=== PATIENT | male | born 1980 | race Caucasian/White ===

== ENCOUNTER 2022-11-15 15:06 | Inpatient (IN) | payer MEDICARE ==
[2022-11-15] MEDS ORDERED: oxyCODONE-APAP 10-325MG 1 EACH TAB PO STA (15:44)
--- NOTE | 2022-11-15 15:48 | ED ---
Fever HPI - General Chief Complaint: Fever Stated Complaint: fever Time Seen by Provider: 11/15/22 15:28 Source: patient Mode of arrival: ambulatory Limitations: no limitations - History of Present Illness Initial Comments: This patient is 42-year-old man sent from [facility] after he was found to have fever and leukocytosis. History is from the patient and his mother. They state that he has a known decubitus ulcer that they believe is infected. The patient denies other symptoms of infection, no sinus congestion or sore throat. No cough or dyspnea. No change in urination or bowel movements. No pain other than chronic pain in the bilateral lower extremities that he states is due to rheumatoid arthritis. Patient is on Percocet chronically for this. MD Complaint: fever Onset/Timin -: days(s) Temperature Source: oral Associated Symptoms: denies other symptoms Treatments Prior to Arrival: none - Related Data Home Medications Medication Instructions Recorded Confirmed Alendronate Sodium [Fosamax] 70 mg PO FR 11/15/22 11/15/22 Aspirin 81 mg PO HS 11/15/22 11/15/22 Atorvastatin Calcium [Lipitor] 80 mg PO HS 11/15/22 11/15/22 Cyanocobalamin [Vitamin B-12] 500 mcg PO HS 11/15/22 11/15/22 DULoxetine HCL [Cymbalta] 60 mg PO DAILY 11/15/22 11/15/22 Ferrous Sulfate [Iron (65 MG 325 mg PO HS 11/15/22 11/15/22 Elemental)] Folic Acid 1 mg PO HS 11/15/22 11/15/22 Levothyroxine Sodium [Synthroid] 50 mcg PO DAILY@0500 11/15/22 11/15/22 Menthol [Biofreeze] 1 applic TOPICAL Q8H PRN 11/15/22 11/15/22 Mirtazapine [Remeron] 15 mg PO HS 11/15/22 11/15/22 Multivitamins, Thera [Multivitamin 1 tab PO HS 11/15/22 11/15/22 (formulary)] Nicotine 21Mg/24Hr Patch [Habitrol] 1 patch TRANSDERM DAILY 11/15/22 11/15/22 Omeprazole [PriLOSEC] 20 mg PO DAILY 11/15/22 11/15/22 Promethazine HCl 12.5 mg PO Q6H PRN 11/15/22 11/15/22 carvediloL [Coreg] 12.5 mg PO BID 11/15/22 11/15/22 metHOTREXate sodium [Methotrexate] 25 mg PO FR 11/15/22 11/15/22 methocarbamoL [Robaxin] 500 mg PO TID@0700,1300,1900 11/15/22 11/15/22 predniSONE [Deltasone] 20 mg PO DAILY 11/15/22 11/15/22 sulfaSALAzine [Sulfasalazine] 1,500 mg PO BID 11/15/22 11/15/22 Previous Rx's Medication Instructions Recorded Ampicillin-Sulbactam [Unasyn 3 gm 3 gm IVPB Q6HR 42 Days #168 each 11/21/22 vial] Heparin Sodium,Porcine [Heparin 5,000 unit SQ Q12HR 30 Days #60 11/21/22 Sodium] each Moxifloxacin [Vigamox 0.5%] 1 drops LEFT EYE TID ml 11/21/22 oxyCODONE-APAP 10-325MG [Percocet 1 tab PO Q4H PRN #3 tab 11/21/22 10-325 mg] Allergies Allergy/AdvReac Type Severity Reaction Status Date / Time No Known Allergies Allergy Verified 11/15/22 19:19 Review of Systems ROS Statement: Those systems with pertinent positive or pertinent negative responses have been documented in the HPI. ROS Other: All systems not noted in ROS Statement are negative. Constitutional: Reports: fever ENT: Denies: throat pain, congestion Respiratory: Denies: cough, dyspnea Cardiovascular: Denies: chest pain Gastrointestinal: Denies: abdominal pain, vomiting, diarrhea Genitourinary: Denies: dysuria, frequency, hematuria Musculoskeletal: Reports: arthralgia (Chronic leg pains) Skin: Reports: other (Decubitus ulcer). Denies: rash Neurological: Denies: headache Past Medical History Past Medical History: CVA/TIA, Rheumatoid Arthritis (RA) Additional Past Medical History / Comment(s): R side flacid, History of Any Multi-Drug Resistant Organisms: None Reported Past Surgical History: No Surgical Hx Reported Smoking Status: Former smoker Past Alcohol Use History: None Reported Past Drug Use History: Marijuana General Exam Limitations: no limitations General appearance: alert, in no apparent distress Head exam: Present: atraumatic, normocephalic Eye exam: Present: normal appearance. Absent: scleral icterus, conjunctival injection ENT exam: Present: mucous membranes dry Neck exam: Present: normal inspection, full ROM Respiratory exam: Present: normal lung sounds bilaterally. Absent: respiratory distress, wheezes, rales, rhonchi, stridor Cardiovascular Exam: Present: normal rhythm, tachycardia, normal heart sounds. Absent: systolic murmur, diastolic murmur, rubs, gallop GI/Abdominal exam: Present: soft. Absent: distended, tenderness, guarding, rebo und, rigid, mass Extremities exam: Present: normal inspection, normal capillary refill, other (There is muscle wasting bilaterally) Neurological exam: Present: alert Skin exam: Present: warm, dry, intact, normal color. Absent: rash Course Vital Signs 11/15/22 11/15/22 11/15/22 15:07 18:26 20:24 Temperature 99.2 F Pulse Rate 110 H 97 94 Respiratory 18 18 18 Rate Blood Pressure 132/92 136/89 142/99 O2 Sat by Pulse 97 96 97 Oximetry 11/15/22 11/15/22 20:25 21:00 Temperature 98.1 F Pulse Rate 92 95 Respiratory 18 16 Rate Blood Pressure 142/99 150/96 O2 Sat by Pulse 98 99 Oximetry Medical Decision Making - Medical Decision Making Patient is 42-year-old man to have admission in order to have surgical consultation for possible debridement related to sacral decubitus ulcer. The chest x-ray is obtained secondary to fever, which I interpreted as not showing acute infiltrate or pneumothorax. Was pt. sent in by a medical professional or institution (, PA, FR[employer]AT GRADER, urgent care, hospital, or prison...) When possible be specific @ -[Patient sent by the prison for evaluation Did you speak to anyone other than the patient for history (EMS, parent, family, police, friend...)? What history was obtained from this source @ -[Family Did you review nursing and triage notes (agree or disagree)? Why? @ -[I reviewed and agree with nursing and triage notes] Were old charts reviewed (outside hosp., previous admission, EMS record, old EKG, old radiological studies, urgent care reports/EKG's, prison records)? Report findings @ -[alf transfer charts were reviewed] Differential Diagnosis (chest pain, altered mental status, abdominal pain women, abdominal pain men, vaginal bleeding, weakness, fever, dyspnea, syncope, headache, dizziness, GI bleed, back pain, seizure, CVA, palpatations, mental health, musculoskeletal)? @ -[Differential Fever: Pneumonia, viral URI, endocarditis, myocarditis, pericarditis, otitis, sinusitis, peritonsillar Abscess, retropharyngeal Abscess, epiglottitis, peritonitis, appendicitis, Shirley cystitis, diverticulitis, hepatitis, colitis, UTI, PID, TOA, pyelonephritis, prostatitis, epididymitis, meningitis, encephalitis, pulmonary embolism, CVA, thyroid storm, pancreatitis, adrenal crisis, cavernous sinus thrombosis, this is not meant to be an all-inclusive list. EKG interpreted by me (3pts min.). @ -[ X-rays interpreted by me (1pt min.). @ -[As above CT interpreted by me (1pt min.). @ -[None done] U/S interpreted by me (1pt. min.). @ -[None done] What testing was considered but not performed or refused? (CT, X-rays, U/S, la bs)? Why? @ -[None] What meds were considered but not given or refused? Why? @ -[None] Did you discuss the management of the patient with other professionals (professionals i.e. , PA, FR[employer] GRADER, lab, RT, psych nurse, social security specialist, ball mill mixer, teacher, control officer, nurse case management)? Give summary @ -[Admitting physician Was smoking cessation discussed for >3mins.? @ -[No] Was critical care preformed (if so, how long)? @ -[No] Were there social determinants of health that impacted care today? How? (Homelessness, low income, unemployed, alcoholism, drug addiction, transportation, low edu. Level, literacy, decrease access to med. care, senior living, rehab)? @ -[No] Was there de-escalation of care discussed even if they declined (Discuss DNR or withdrawal of care, Hospice)? DNR status @ -[No] What co-morbidities impacted this encounter? (DM, HTN, Smoking, COPD, CAD, Cancer, CVA, ARF, Chemo, Hep., AIDS, mental health diagnosis, sleep apnea, m orbid obesity)? @ -[None] Was patient admitted / discharged? Hospital course, mention meds given and route, prescriptions, significant lab abnormalities, going to OR and other pertinent info. @ -[Admitted Undiagnosed new problem with uncertain prognosis? @ -[No] Drug Therapy requiring intensive monitoring for toxicity (Heparin, Nitro, Insulin, Cardizem)? @ -[No] Were any procedures done? @ -[No] Diagnosis/symptom? @ -[Sacral decubitus ulcer with suspected cellulitis Fever Acute, or Chronic, or Acute on Chronic? @ -[Acute on chronic Uncomplicated (without systemic symptoms) or Complicated (systemic symptoms)? @ -[default] Side effects of treatment? @ -[No] Exacerbation, Progression, or Severe Exacerbation? @ -[No] Poses a threat to life or bodily function? How? (Chest pain, USA, MD, pneumonia, PE, COPD, DKA, ARF, appy, cholecystitis, CVA, Diverticulitis, Homicidal, Suicidal, threat to staff... and all critical care pts) @ -[IES should infection progressed to sepsis this can become life-threatening condition] - Lab Data Result diagrams: 11/21/22 09:50 11/21/22 11:20 Lab Results 11/15/22 11/15/22 11/15/22 Range/Units 15:48 15:48 15:48 WBC 16.7 H (3.8-10.6) k/uL RBC 4.37 (4.30-5.90) m/uL Hgb 11.2 L (13.0-17.5) gm/dL Hct 35.9 L (39.0-53.0) % MCV 82.1 (80.0-100.0) fL MCH 25.7 (25.0-35.0) pg MCHC 31.3 (31.0-37.0) g/dL RDW 19.4 H (11.5-15.5) % Plt Count 519 H (150-450) k/uL MPV 7.4 Neutrophils % 92 % Lymphocytes % 5 % Monocytes % 2 % Eosinophils % 1 % Basophils % 0 % Neutrophils # 15.4 H (1.3-7.7) k/uL Lymphocytes # 0.9 L (1.0-4.8) k/uL Monocytes # 0.3 (0-1.0) k/uL Eosinophils # 0.1 (0-0.7) k/uL Basophils # 0.0 (0-0.2) k/uL Hypochromasia Slight Anisocytosis Slight Microcytosis Slight Sodium 137 (137-145) mmol/L Potassium 4.2 (3.5-5.1) mmol/L Chloride 102 (98-107) mmol/L Carbon Dioxide 26 (22-30) mmol/L Anion Gap 9 mmol/L BUN 9 (9-20) mg/dL Creatinine 0.39 L (0.66-1.25) mg/dL Est GFR (CKD-EPI)AfAm >90 (>60 ml/min/1.73 sqM) Est GFR (CKD-EPI)NonAf >90 (>60 ml/min/1.73 sqM) Glucose 120 H (74-99) mg/dL Plasma Lactic Acid Terry (0.7-2.0) mmol/L Calcium 8.8 (8.4-10.2) mg/dL Total Bilirubin 0.4 (0.2-1.3) mg/dL AST 37 (17-59) U/L ALT 47 (4-49) U/L Alkaline Phosphatase 105 (38-126) U/L Total Protein 5.9 L (6.3-8.2) g/dL Albumin 3.0 L (3.5-5.0) g/dL Urine Color Dark Yellow Urine Appearance Clear (Clear) Urine pH 6.0 (5.0-8.0) Ur Specific [place] 1.036 H (1.001-1.035) Urine Protein Trace H (Negative) Urine Glucose (UA) Negative (Negative) Urine Ketones Negative (Negative) Urine Blood Negative (Negative) Urine Nitrite Negative (Negative) Urine Bilirubin 1+ H (Negative) Urine Urobilinogen 2.0 (<2.0) mg/dL Ur Leukocyte Esterase Negative (Negative) Influenza Type A (PCR) (Not Detectd) Influenza Type B (PCR) (Not Detectd) RSV (PCR) (Not Detectd) SARS-CoV-2 (PCR) (Not Detectd) 11/15/22 11/15/22 Range/Units 15:48 15:48 WBC (3.8-10.6) k/uL RBC (4.30-5.90) m/uL Hgb (13.0-17.5) gm/dL Hct (39.0-53.0) % MCV (80.0-100.0) fL MCH (25.0-35.0) pg MCHC (31.0-37.0) g/dL RDW (11.5-15.5) % Plt Count (150-450) k/uL MPV Neutrophils % % Lymphocytes % % Monocytes % % Eosinophils % % Basophils % % Neutrophils # (1.3-7.7) k/uL Lymphocytes # (1.0-4.8) k/uL Monocytes # (0-1.0) k/uL Eosinophils # (0-0.7) k/uL Basophils # (0-0.2) k/uL Hypochromasia Anisocytosis Microcytosis Sodium (137-145) mmol/L Potassium (3.5-5.1) mmol/L Chloride (98-107) mmol/L Carbon Dioxide (22-30) mmol/L Anion Gap mmol/L BUN (9-20) mg/dL Creatinine (0.66-1.25) mg/dL Est GFR (CKD-EPI)AfAm (>60 ml/min/1.73 sqM) Est GFR (CKD-EPI)NonAf (>60 ml/min/1.73 sqM) Glucose (74-99) mg/dL Plasma Lactic Acid Terry 1.0 (0.7-2.0) mmol/L Calcium (8.4-10.2) mg/dL Total Bilirubin (0.2-1.3) mg/dL AST (17-59) U/L ALT (4-49) U/L Alkaline Phosphatase (38-126) U/L Total Protein (6.3-8.2) g/dL Albumin (3.5-5.0) g/dL Urine Color Urine Appearance (Clear) Urine pH (5.0-8.0) Ur Specific [place] (1.001-1.035) Urine Protein (Negative) Urine Glucose (UA) (Negative) Urine Ketones (Negative) Urine Blood (Negative) Urine Nitrite (Negative) Urine Bilirubin (Negative) Urine Urobilinogen (<2.0) mg/dL Ur Leukocyte Esterase (Negative) Influenza Type A (PCR) Not Detected (Not Detectd) Influenza Type B (PCR) Not Detected (Not Detectd) RSV (PCR) Not Detected (Not Detectd) SARS-CoV-2 (PCR) Not Detected (Not Detectd) Disposition Clinical Impression: Fever, Decubitus ulcer Narrative: possible pneumonia Disposition: ADMITTED IP TO THIS HOSP Condition: Fair Is patient prescribed a controlled substance at d/c from ED?: No
[2022-11-15 16:11] LABS: Anisocytosis Slight; Basophils % (A) 0 %; Eosinophils # (A) 0.1 k/uL (0-0.7); Eosinophils % (A) 1 %; HCT 35.9 % (39.0-53.0); HGB 11.2 gm/dL (13.0-17.5); Hypochromasia Slight; Lymphocytes # (A) 0.9 k/uL (1.0-4.8); Lymphocytes % (A) 5 %; MCH 25.7 pg (25.0-35.0); MCHC 31.3 g/dL (31.0-37.0); MCV 82.1 fL (80.0-100.0); Mean Platelet Volume 7.4; Microcytosis Slight; Monocytes # (A) 0.3 k/uL (0-1.0); Monocytes % (A) 2 %; Neutrophils # (A) 15.4 k/uL (1.3-7.7); Neutrophils % (A) 92 %; Platelet Count 519 k/uL (150-450); RBC 4.37 m/uL (4.30-5.90); RDW 19.4 % (11.5-15.5); WBC 16.7 k/uL (3.8-10.6)
[2022-11-15 16:28] LABS: ALT 47 U/L (4-49); AST 37 U/L (17-59); African American GFR (CKD) >90 (>60 ml/min/1.73 sqM); Alkaline Phosphatase 105 U/L (38-126); Anion Gap 9 mmol/L; Blood Urea Nitrogen 9 mg/dL (9-20); Calcium 8.8 mg/dL (8.4-10.2); Carbon Dioxide 26 mmol/L (22-30); Chloride 102 mmol/L (98-107); Glucose 120 mg/dL (74-99); Non-African American GFR(CKD) >90 (>60 ml/min/1.73 sqM); Potassium 4.2 mmol/L (3.5-5.1); Sodium 137 mmol/L (137-145); Total Bilirubin 0.4 mg/dL (0.2-1.3); Total Protein 5.9 g/dL (6.3-8.2)
--- NOTE | 2022-11-15 16:29 | XR ---
EXAMINATION TYPE: XR chest 2V DATE OF EXAM: 11/15/2022 COMPARISON: NONE HISTORY: Weakness and fever. TECHNIQUE: Frontal and lateral views of the chest are obtained. FINDINGS: Left mid lung linear scarring and/or atelectasis. Patchy opacity peripheral right upper to midlung . Trace fluid in the fissures There is no pneumothorax seen. The cardiac silhouette size is within normal limits. Hiatal hernia is suspected. Underlying scoliosis is present. IMPRESSION: Left mid lung linear atelectasis and/or scarring. Possible developing peripheral right u pper to midlung infiltrate and/or atelectasis. Trace bilateral pleural effusions.
[2022-11-15] MEDS ORDERED: NAFCILLIN 2 GM in DEXTROSE 5% IN WATER 100 ML IVPB STA ×2 (17:31)
[2022-11-15] MEDS ORDERED: VANCOMYCIN IV PER PHARMACY 1 EACH MISC MISCELLANE PRN (17:31)
[2022-11-15] MEDS ORDERED: VANCOMYCIN 1,250 MG in SODIUM CHLORIDE 0.9% 250 ML IVPB STA (17:49)
[2022-11-15 18:08] LABS: Appearance,Urine Clear (Clear); Bilirubin,Urine 1+ (Negative); Blood,Urine Negative (Negative); Color,Urine Dark Yellow; Glucose,Urine (UA) Negative (Negative); Ketones,Urine Negative (Negative); Leukocyte Esterase,Urine Negative (Negative); Nitrite,Urine Negative (Negative); Protein,Urine Trace (Negative); Specific Gravity,Urine 1.036 (1.001-1.035)
[2022-11-15] MEDS ORDERED: NALOXONE 0.4 MG/ML 1 ML VIAL IV PRN (18:43)
[2022-11-15] MEDS ORDERED: AZITHROMYCIN 500 MG TAB PO STA (19:17)
[2022-11-15] MEDS ORDERED: SODIUM CHLORIDE 0.9% 1,000 ML IV ONE (19:21)
[2022-11-15] MEDS: SODIUM CHLORIDE 0.9% 1,000 ML IV SCH (22:06)
[2022-11-16] MEDS ORDERED: VANCOMYCIN 1,250 MG in SODIUM CHLORIDE 0.9% 250 ML IVPB SCH (02:00)
[2022-11-16] MEDS: oxyCODONE-APAP 10-325MG 1 EACH TAB PO PRN ×3 (04:17→19:47)
[2022-11-16] MEDS: SODIUM CHLORIDE 0.9% 1,000 ML IV SCH ×3 (10:00→23:54)
[2022-11-16] MEDS: NICOTINE 21MG/24HR PATCH TRANSDERM SCH (10:00)
--- NOTE | 2022-11-16 10:10 | P.HPIM ---
History of Present Illness This is a pleasant 42 years old male with past medical history of CVA/TIA, Rheumatoid Arthritis, hypertension, hypothyroidism, osteoporosis. Patient is awake and alert, he states that he has a long history of rheumatoid arthritis a nd his currently on methotrexate and prednisone for this purpose, he says that his been having bedridden for a long time because of his arthritis and he is to live with his mom house however he got a stroke about 2 weeks ago and he wants [facility], however he says bedridden most of the day there. It looks like he was sent for fever and leukocytosis of 20.1 per documents at his residential. Patient currently is awake alert, answers a slowly, no slurred speech, no double vision, no chest pain or dyspnea. He complains from right hemiparesis because of the old stroke and bilateral lower extremity arthritis causing bilateral lower extremity weakness area also has some hand deformity related to his arthritis he denies chest pain dyspnea or coughing, no abdominal pain vomiting or di arrhea. No urinary complaints. he denies smoking, quit about 3 weeks ago when he went to rehab, no alcohol or illicit drugs. On admission no fever documented but is tachycardic around 117, blood pressure and oxygen saturation unacceptable With Leukocytosis of 16.7, Hemoglobin 11.2, Rest of CBC, BMP and Liver Enzymes Were Unremarkable. Urine Analysis Is Unremarkable. Influenza, RSV and [place] Viruses Are Undetected Chest x-ray: Left mid lung Atelectasis and/or scarring. Possible developing per ipheral right upper to mid lung infiltrate and/or atelectasis. Trace bilateral effusion In the emergency room patient was started on IV vancomycin and received IV fluids Review of Systems Review of systems CONSTITUTIONAL: No fever, no malaise, no fatigue. HEENT: No recent visual problems or hearing problems. Denied any sore throat. CARDIOVASCULAR: No orthopnea, PND, no palpitations, no syncope. PULMONARY: No shortness of breath, no cough, no hemoptysis. GASTROINTESTINAL: No diarrhea, no nausea, no vomiting, no abdominal pain. Normoactive bowel sounds. NEUROLOGICAL: No headaches, no weakness, no numbness. HEMATOLOGICAL: Denies any bleeding or petechiae. GENITOURINARY: Denies any burning micturition, frequency, or urgency. MUSCULOSKELETAL/RHEUMATOLOGICAL: Denies any joint pain, swelling, or any muscle pain. ENDOCRINE: Denies any polyuria or polydipsia. Past Medical History Past Medical History: CVA/TIA, Rheumatoid Arthritis (RA) Additional Past Medical History / Comment(s): R side flacid, pressure ucler coccyx History of Any Multi-Drug Resistant Organisms: None Reported Past Surgical History: No Surgical Hx Reported Past Psychological History: No Psychological Hx Reported Smoking Status: Former smoker Past Alcohol Use History: None Reported Past Drug Use History: Marijuana Medications and Allergies Home Medications Medication Instructions Recorded Confirmed Type Alendronate Sodium [Fosamax] 70 mg PO FR 11/15/22 11/15/22 History Aspirin 81 mg PO HS 11/15/22 11/15/22 History Atorvastatin Calcium [Lipitor] 80 mg PO HS 11/15/22 11/15/22 History Cyanocobalamin [Vitamin B-12] 500 mcg PO HS 11/15/22 11/15/22 History DULoxetine HCL [Cymbalta] 60 mg PO DAILY 11/15/22 11/15/22 History Ferrous Sulfate [Feosol] 325 mg PO HS 11/15/22 11/15/22 History Folic Acid 1 mg PO HS 11/15/22 11/15/22 History Levothyroxine Sodium [Synthroid] 50 mcg PO DAILY@0500 11/15/22 11/15/22 History Menthol [Biofreeze] 1 applic TOPICAL Q8H PRN 11/15/22 11/15/22 History Mirtazapine [Remeron] 15 mg PO HS 11/15/22 11/15/22 History Multivitamins, Thera [Multivitamin 1 tab PO HS 11/15/22 11/15/22 History (formulary)] Nicotine 21Mg/24Hr Patch [Habitrol] 1 patch TRANSDERM DAILY 11/15/22 11/15/22 History Omeprazole [PriLOSEC] 20 mg PO DAILY 11/15/22 11/15/22 History Promethazine HCl 12.5 mg PO Q6H PRN 11/15/22 11/15/22 History carvediloL [Coreg] 12.5 mg PO BID 11/15/22 11/15/22 History metHOTREXate sodium [Methotrexate] 25 mg PO FR 11/15/22 11/15/22 History methocarbamoL [Robaxin] 500 mg PO TID@0700,1300,1900 11/15/22 11/15/22 History oxyCODONE-APAP 10-325MG [Percocet 1 tab PO Q4H PRN 11/15/22 11/15/22 History 10-325 mg] predniSONE [Deltasone] 20 mg PO DAILY 11/15/22 11/15/22 History sulfaSALAzine [Sulfasalazine] 1,500 mg PO BID 11/15/22 11/15/22 History Allergies Allergy/AdvReac Type Severity Reaction Status Date / Time No Known Allergies Allergy Verified 11/15/22 19:19 Physical Exam Vitals: Vital Signs Temp Pulse Pulse Resp BP BP Pulse Ox 11/16/22 07:57 98.1 F 117 H 14 154/98 97 11/16/22 03:47 117 H 11/16/22 03:43 98.8 F 117 H 16 150/98 11/15/22 21:00 95 16 150/96 99 11/15/22 20:25 98.1 F 92 18 142/99 98 11/15/22 20:24 94 18 142/99 97 11/15/22 18:26 97 18 136/89 96 11/15/22 15:07 99.2 F 110 H 18 132/92 97 Intake and Output 11/15/22 11/16/22 11/16/22 22:59 06:59 14:59 Other: Voiding Method Diaper Weight 72.575 kg 72.575 kg Family GENERAL: The patient is alert and oriented x3, not in any acute distress. Well developed, well nourished. HEENT: Pupils are round and equally reacting to light. EOMI. No scleral icterus. No conjunctival pallor. Normocephalic, atraumatic. No pharyngeal erythema. No thyromegaly. CARDIOVASCULAR: S1 and S2 present. No murmurs, rubs, or gallops. PULMONARY: Chest is clear to auscultation, no wheezing or crackles. ABDOMEN: Soft, nontender, nondistended, normoactive bowel sounds. No palpable organomegaly. MUSCULOSKELETAL: No joint swelling or deformity. sacral pressure ulcer EXTREMITIES: No cyanosis, clubbing, or pedal edema. NEUROLOGICAL: Gross neurological examination did not reveal any focal deficits. SKIN: No rashes. no petechiae. Results CBC & Chem 7: 11/15/22 15:48 11/15/22 15:48 Labs: Abnormal Lab Results - Last 24 Hours (Table) 11/15/22 11/15/22 11/15/22 Range/Units 15:48 15:48 15:48 WBC 16.7 H (3.8-10.6) k/uL Hgb 11.2 L (13.0-17.5) gm/dL Hct 35.9 L (39.0-53.0) % RDW 19.4 H (11.5-15.5) % Plt Count 519 H (150-450) k/uL Neutrophils # 15.4 H (1.3-7.7) k/uL Lymphocytes # 0.9 L (1.0-4.8) k/uL Creatinine 0.39 L (0.66-1.25) mg/dL Glucose 120 H (74-99) mg/dL Total Protein 5.9 L (6.3-8.2) g/dL Albumin 3.0 L (3.5-5.0) g/dL Ur Specific [place] 1.036 H (1.001-1.035) Urine Protein Trace H (Negative) Urine Bilirubin 1+ H (Negative) Microbiology - Last 24 Hours (Table) 11/15/22 19:41 Wound Culture - Preliminary Other - Other Thrombosis Risk Factor Assmnt - Choose All That Apply Any of the Below Risk Factors Present?: No Other Risk Factors: Yes Each Risk Factor Represents 2 Points: Patient confined to bed Other congenital or acquired thrombophilia - If yes, enter type in comment: No Thrombosis Risk Factor Assessment Total Risk Factor Score: 2 Thrombosis Risk Factor Assessment Level: Low Risk Assessment and Plan Assessment: Sacral decubitus ulcer Sepsis secondary to above with fever and leukocytosis Hypertension Hypothyroidism History of CVA/TIA History of rheumatoid arthritis on methotrexate and prednisone 20 mg Osteoporosis on alternate Plan: Continue with IV antibiotic per ID team wore consult. Currently on IV vancomyci n Start to obtain and follow-up wound culture Continue with prednisone but hold methotrexate Continue gentle hydration Labs and medication were reviewed.. Continue same treatment. Continue with symptomatic treatment. Resume home medication. Monitor labs and vitals. DVT and GI prophylaxis. Further recommendations as per clinical course of the patient DVT prophylaxis: Subcutaneous heparin GI Prophylaxis: Pepcid Prognosis is guarded
[2022-11-16] MEDS: AMPICILLIN-SULBACTAM 3 GM in SODIUM CHLORIDE 0.9% 100 ML IVPB SCH ×3 (11:55→23:53)
--- NOTE | 2022-11-16 11:57 | CT ---
EXAMINATION TYPE: CT sacrum wo con DATE OF EXAM: 11/16/2022 COMPARISON: None. HISTORY: Focal pain and swelling. Rule out osteomyelitis/abscess. Patient is bedridden and/or does no t ambulate. CT DLP: 296.7 mGycm Automated exposure control for dose reduction was used. FINDINGS: Chronic pelvic deformity is present. There is advanced joint space loss with [id number] appearance in both hip joints. There is subchondral cystic change present bilaterally. Sacrum and coccyx are del ssly intact. There is overlying bandage material with mild skin thickening and fat stranding over the posterior soft tissue at the level of the coccyx greater on the right without definitive regular bon y destruction. There is anterior tilting of the coccyx noted on sagittal images. There is no well-for med thick walled fluid collection or abscess. There is more prominent fluid and fat stranding surroun ding these coccyx with small 3 mm round focus of subcutaneous air along the right aspect axial image 57 and few smaller foci of air inferior to this in the midline. There is moderate rectal fecal prominence. Uterus is surgically absent. Incidental normal-appearing a ppendix. Pubic symphysis is intact. No concerning pelvic fluid collection. IMPRESSION: Inflammatory change abuts and surrounds the coccyx making bone involvement or osteomyelit is impossible to exclude on CT. No suspicious bony destruction to definitively suggest acute osteomye litis on CT. No well-formed fluid collection or drainable abscess seen.
[2022-11-16 12:26] VITALS: BMI 22.9
[2022-11-16] MEDS: VANCOMYCIN 1,250 MG in SODIUM CHLORIDE 0.9% 250 ML IVPB SCH ×2 (12:51→19:47)
[2022-11-16] MEDS: carvediloL 12.5 MG TAB PO SCH (17:36)
[2022-11-16] MEDS: FERROUS SULFATE 325 MG TAB PO SCH (20:56)
[2022-11-16] MEDS: FOLIC ACID 1 MG TAB PO SCH (20:56)
[2022-11-16] MEDS: ASPIRIN 81 MG PO SCH (20:56)
[2022-11-16] MEDS: ATORVASTATIN 80 MG TAB PO SCH (20:56)
--- NOTE | 2022-11-16 20:56 | P.CONS ---
History of Present Illness - Reason for Consult Consult date: 11/16/22 Fever possible infected pressure ulcer Requesting physician: Darci E Sheet - Chief Complaint Fever 1 day - History of Present Illness Patient is a 42-year-old male with a past medical history significant for rheumatoid arthritis hypertension osteoporosis CVA TIA and apparently the patient has been bedridden for a long time currently at the [facility] for rehabi litation patient has been sent to the ER from the correction for evaluation of fever that apparently has been going on for a day or 2 before presentation to the hospital patient denies having any headache or URI symptoms is breathing comfortably in room air no chest pain shortness of breath or coughing no nausea no vomiting no abdominal pain or any diarrhea patient has developed a sacral pressure ulcer patient did not have significant symptoms as well as pain and drainage is concerning to the sacral wound area on presentation the hospital patient did have low-grade fever of 99.2 patient was tachycardic however not hypoxic or hypotensive and no need for supplemental oxygen did have a white count of 16.7 with a left shift kidney function has been normal liver enzymes are normal urine has been negative influenza RSV and COVID testing was negative blood cultures obtained which are currently pending he also have cultures obtained from sacral wound which are currently pending patient did have a chest x-ray left midlung linear atelectasis and or scarring patient was started on vancomycin concerning for infected sacral pressure ulcer infectious disease was consulted for further management of antibiotic therapy Review of Systems Positive point has been mentioned in the HPI rest of the systems are negative Past Medical History Past Medical History: CVA/TIA, Rheumatoid Arthritis (RA) Additional Past Medical History / Comment(s): R side flacid, pressure ucler coccyx History of Any Multi-Drug Resistant Organisms: None Reported Past Surgical History: No Surgical Hx Reported Past Psychological History: No Psychological Hx Reported Smoking Status: Former smoker Past Alcohol Use History: None Reported Past Drug Use History: Marijuana Medications and Allergies Home Medications Medication Instructions Recorded Confirmed Type Alendronate Sodium [Fosamax] 70 mg PO 11/15/22 11/15/22 History Aspirin 81 mg PO HS 11/15/22 11/15/22 History Atorvastatin Calcium [Lipitor] 80 mg PO HS 11/15/22 11/15/22 History Cyanocobalamin [Vitamin B-12] 500 mcg PO HS 11/15/22 11/15/22 History DULoxetine HCL [Cymbalta] 60 mg PO DAILY 11/15/22 11/15/22 History Ferrous Sulfate [Iron (65 MG 325 mg PO HS 11/15/22 11/15/22 History Elemental)] Folic Acid 1 mg PO HS 11/15/22 11/15/22 History Levothyroxine Sodium [Synthroid] 50 mcg PO DAILY@0500 11/15/22 11/15/22 History Menthol [Biofreeze] 1 applic TOPICAL Q8H PRN 11/15/22 11/15/22 History Mirtazapine [Remeron] 15 mg PO HS 11/15/22 11/15/22 History Multivitamins, Thera [Multivitamin 1 tab PO HS 11/15/22 11/15/22 History (formulary)] Nicotine 21Mg/24Hr Patch [Habitrol] 1 patch TRANSDERM DAILY 11/15/22 11/15/22 History Omeprazole [PriLOSEC] 20 mg PO DAILY 11/15/22 11/15/22 History Promethazine HCl 12.5 mg PO Q6H PRN 11/15/22 11/15/22 History carvediloL [Coreg] 12.5 mg PO BID 11/15/22 11/15/22 History metHOTREXate sodium [Methotrexate] 25 mg PO FR 11/15/22 11/15/22 History methocarbamoL [Robaxin] 500 mg PO TID@0700,1300,1900 11/15/22 11/15/22 History predniSONE [Deltasone] 20 mg PO DAILY 11/15/22 11/15/22 History sulfaSALAzine [Sulfasalazine] 1,500 mg PO BID 11/15/22 11/15/22 History Ampicillin-Sulbactam [Unasyn 3 gm 3 gm IVPB Q6HR 42 Days #168 each 11/21/22 Rx vial] Heparin Sodium,Porcine [Heparin 5,000 unit SQ Q12HR 30 Days #60 11/21/22 Rx Sodium] each Moxifloxacin [Vigamox 0.5%] 1 drops LEFT EYE TID ml 11/21/22 Rx oxyCODONE-APAP 10-325MG [Percocet 1 tab PO Q4H PRN #3 tab 11/21/22 Rx 10-325 mg] Allergies Allergy/AdvReac Type Severity Reaction Status Date / Time No Known Allergies Allergy Verified 11/15/22 19:19 Physical Exam Vitals: Vital Signs Temp Pulse Pulse Resp BP BP Pulse Ox 11/16/22 07:57 98.1 F 117 H 14 154/98 97 11/16/22 03:47 117 H 11/16/22 03:43 98.8 F 117 H 16 150/98 11/15/22 21:00 95 16 150/96 99 11/15/22 20:25 98.1 F 92 18 142/99 98 11/15/22 20:24 94 18 142/99 97 11/15/22 18:26 97 18 136/89 96 11/15/22 15:07 99.2 F 110 H 18 132/92 97 Intake and Output 11/15/22 11/16/22 11/16/22 22:59 06:59 14:59 Other: Voiding Method Diaper Weight 72.575 kg 72.575 kg GENERAL DESCRIPTION: Middle-aged male lying in bed, no distress. No tachypnea or accessory muscle of respiration use. HEENT: Shows Pallor , no scleral icterus. Oral mucous membrane is dry. No pharyngeal erythema or thrush NECK: Trachea central, no thyromegaly. LUNGS: Unlabored breathing. Clear to auscultation anteriorly. No wheeze or crackle. HEART: S1, S2, regular rate and rhythm. No loud murmur ABDOMEN: Soft, no tenderness , guarding or rigidity, no organomegaly EXTREMITIES: No edema of feet. SKIN: No rash, no masses palpable. Patient did have a sacral pressure ulcer stage III with slough tissue some surrounding redness no foul-smelling drainage NEUROLOGICAL: The patient is awake, alert, oriented x3, mood and affect normal. Results CBC & Chem 7: 11/20/22 08:56 11/21/22 11:20 Labs: Abnormal Lab Results - Last 24 Hours (Table) 11/15/22 11/15/22 11/15/22 Range/Units 15:48 15:48 15:48 WBC 16.7 H (3.8-10.6) k/uL Hgb 11.2 L (13.0-17.5) gm/dL Hct 35.9 L (39.0-53.0) % RDW 19.4 H (11.5-15.5) % Plt Count 519 H (150-450) k/uL Neutrophils # 15.4 H (1.3-7.7) k/uL Lymphocytes # 0.9 L (1.0-4.8) k/uL Creatinine 0.39 L (0.66-1.25) mg/dL Glucose 120 H (74-99) mg/dL Total Protein 5.9 L (6.3-8.2) g/dL Albumin 3.0 L (3.5-5.0) g/dL Ur Specific [place] 1.036 H (1.001-1.035) Urine Protein Trace H (Negative) Urine Bilirubin 1+ H (Negative) Microbiology - Last 24 Hours (Table) 11/15/22 19:41 Wound Culture - Preliminary Other - Other Assessment and Plan (1) Decubitus ulcer Current Visit: Yes Status: Acute Code(s): L89.90 - PRESSURE ULCER OF UNSPECIFIED SITE, UNSPECIFIED STAGE SNOMED Code(s): 6133902797 (2) Fever Current Visit: Yes Status: Acute Code(s): R50.9 - FEVER, UNSPECIFIED SNOMED Code(s): 217777832 Plan: 1patient presented to hospital with sepsis in this patient who did have a low- grade fever elevated white count tachycardia source is likely infected sacral pressure ulcer as the patient currently do not have any other obvious focus of infection he is breathing comfortably on room air chest x-ray not show any consolidation urine has been negative and no evidence of lower extremity cellulitis or joint swelling wound did have minimal slough tissue and minimal surrounding redness we will need to cover for both gram-positive as well as gram -negative pathogen 2-we will obtain a CT of the sacrum and a determination evidence of any abscess or osteomyelitis 3-obtain inflammatory markers 4-local wound care with Medihoney followed by moist dressing change daily 5-vancomycin pharmacy to dose with a target trough of 15 while watching kidney f unction and Vanco trough closely. However we will add Unasyn to cover for the anaerobes and gram-negative We will follow on clinical condition and cultures to further adjust medication if needed Thank you for this consultation we will follow the patient along with you Time with Patient: Greater than 30
[2022-11-16] MEDS ORDERED: HEPARIN SODIUM,PORCINE/PF 5,000 UNIT/0.5 ML SYRINGE SQ SCH (21:00)
[2022-11-16] MEDS ORDERED: carvediloL 12.5 MG TAB PO STA (22:01)
--- NOTE | 2022-11-16 22:46 | US ---
EXAMINATION TYPE: US venous doppler duplex LE BI DATE OF EXAM: 11/16/2022 10:05 PM COMPARISON: NONE CLINICAL HISTORY: leg swelling. SIDE PERFORMED: Bilateral TECHNIQUE: The lower extremity deep venous system is examined utilizing real time linear array sonog arvind with graded compression, doppler sonography and color-flow sonography. VESSELS IMAGED: Common Femoral Vein Deep Femoral Vein Greater Saphenous Vein * Femoral Vein Popliteal Vein Small Saphenous Vein * Proximal Calf Veins (* superficial vessels) Right Leg: Negative for DVT Left Leg: Negative for DVT IMPRESSION: No evidence of deep vein thrombosis in both legs.
[2022-11-16] MEDS: HEPARIN SODIUM,PORCINE/PF 5,000 UNIT/0.5 ML SYRINGE SQ SCH (23:58)
[2022-11-17] MEDS: VANCOMYCIN 1,250 MG in SODIUM CHLORIDE 0.9% 250 ML IVPB SCH ×3 (03:29→19:58)
[2022-11-17] MEDS: oxyCODONE-APAP 10-325MG 1 EACH TAB PO PRN ×2 (05:26→19:57)
[2022-11-17] MEDS: LEVOTHYROXINE 50 MCG TAB PO SCH (05:30)
[2022-11-17] MEDS: AMPICILLIN-SULBACTAM 3 GM in SODIUM CHLORIDE 0.9% 100 ML IVPB SCH ×4 (06:27→23:24)
[2022-11-17] MEDS: carvediloL 12.5 MG TAB PO SCH ×2 (06:27→17:41)
[2022-11-17 08:56] LABS: Basophils # (A) 0.08 X 10*3/uL (0.00-0.10); Basophils % (A) 0.5 %; Eosinophils # (A) 0.15 X 10*3/uL (0.04-0.35); Eosinophils % (A) 0.9 %; HCT 32.5 % (39.6-50.0); HGB 9.7 g/dL (13.0-17.0); Immature Grans, Automated 0.5 %; Lymphocytes # (A) 2.98 X 10*3/uL (0.90-5.00); Lymphocytes % (A) 18.7 %; MCH 24.7 pg (27.0-32.0); MCHC 29.8 g/dL (32.0-37.0); MCV 82.9 fL (80.0-97.0); Mean Platelet Volume 9.7 fL (9.5-12.2); Monocytes % (A) 7.5 %; NRBC Per 100 WBC 0 /100 WBCS (0.0-0.0); Neutrophils # (A) 11.47 X 10*3/uL (1.80-7.70); Neutrophils % (A) 71.9 %; Platelet Count 523 X 10*3/uL (140-440); RBC 3.92 X 10*6/uL (4.40-5.60); RDW 20.9 % (11.5-14.5); WBC 15.96 X 10*3/uL (4.50-10.00)
[2022-11-17] MEDS ORDERED: FAMOTIDINE 20 MG/2 ML VIAL IV SCH (09:00)
[2022-11-17 09:19] LABS: Erythrocyte Sedimentation Rate 75 mm/Hr (0-15)
[2022-11-17 09:35] LABS: African American GFR (CKD) 193.8 (60.0-200.0); Albumin 2.9 g/dL (3.8-4.9); Albumin/Globulin Ratio 1.21 (1.60-3.17); Anion Gap 12.4 mmol/L (10.00-18.00); BUN/Creat Ratio 13.67 Ratio (12.00-20.00); Blood Urea Nitrogen 4.1 mg/dL (9.0-27.0); C Reactive Protein 11.2 mg/dL (0.00-0.80); Calcium 8.7 mg/dL (8.7-10.3); Carbon Dioxide 21.6 mmol/L (20.0-27.5); Globulin 2.4 g/dL (1.6-3.3); Non-African American GFR(CKD) 167.2 (60.0-200.0); Potassium 3.6 mmol/L (3.5-5.5); Total Bilirubin 0.2 mg/dL (0.30-1.20); Total Protein 5.3 g/dL (6.2-8.2)
[2022-11-17] MEDS: predniSONE 20 MG TAB PO SCH (10:24)
[2022-11-17] MEDS: DULoxetine HCL 60 MG CAPSULE.DR PO SCH (10:24)
[2022-11-17] MEDS: HEPARIN SODIUM,PORCINE/PF 5,000 UNIT/0.5 ML SYRINGE SQ SCH ×3 (10:24→23:24)
[2022-11-17] MEDS: FAMOTIDINE 20 MG TAB PO SCH ×2 (10:24→21:28)
[2022-11-17] MEDS: NICOTINE 21MG/24HR PATCH TRANSDERM SCH (10:25)
[2022-11-17] MEDS ORDERED: VANCOMYCIN TROUGH DUE 1 EACH MISC MISCELLANE ONE (11:00)
--- NOTE | 2022-11-17 16:48 | P.PN ---
Subjective Progress Note Date: 11/17/22 Principal diagnosis: Fever/infected sacral pressure ulcer Patient is a 42-year-old male with a past medical history significant for rheumatoid arthritis hypertension osteoporosis CVA TIA and apparently the patient has been bedridden for a long time currently at the [facility] for rehabilitation patient has been [facility] for evaluation of fever , with concern for infected sacral pressure ulcer, CT did not show any bony destruction however there was evidence of inflammatory changes around the coccyx suspicious for infected pressure ulcer on today's evaluation that is 11/17/2022, the patient is afebrile, the patient is breathing comfortably on room air no chest pain shortness of breath or cough no nausea no vomiting no abdominal pain or diarrhea Objective - Vital Signs Vital signs: Vital Signs Temp 98.5 F 11/17/22 08:00 Pulse 106 H 11/17/22 08:00 Resp 17 11/17/22 08:00 BP 142/94 11/17/22 08:00 Pulse Ox 98 11/17/22 08:00 FiO2 Intake & Output 11/16/22 11/17/22 11/17/22 18:59 06:59 18:59 Weight 72.575 kg Other: Voiding Method Diaper # Voids 2 # Bowel Movements 1 0 - Exam GENERAL DESCRIPTION: Middle-aged male lying in bed in no distress RESPIRATORY SYSTEM: Unlabored breathing , decreased breath sounds at bases HEART: S1 S2 regular rate and rhythm , ABDOMEN: Soft , no tenderness EXTREMITIES: No edema feet - Labs CBC & Chem 7: 11/17/22 05:55 11/17/22 05:55 Labs: Abnormal Lab Results - Last 24 Hours (Table) 11/17/22 11/17/22 11/17/22 Range/Units 05:55 05:55 05:55 WBC 15.96 H (4.50-10.00) X 10*3/uL RBC 3.92 L (4.40-5.60) X 10*6/uL Hgb 9.7 L (13.0-17.0) g/dL Hct 32.5 L (39.6-50.0) % MCH 24.7 L (27.0-32.0) pg MCHC 29.8 L (32.0-37.0) g/dL RDW 20.9 H (11.5-14.5) % Plt Count 523 H (140-440) X 10*3/uL Immature Gran # 0.08 H (0.00-0.04) X 10*3/uL Neutrophils # 11.47 H (1.80-7.70) X 10*3/uL Monocytes # 1.20 H (0.20-1.00) X 10*3/uL ESR 75 H (0-15) mm/Hr BUN 4.1 L (9.0-27.0) mg/dL Creatinine 0.3 L (0.6-1.5) mg/dL Total Bilirubin 0.20 L (0.30-1.20) mg/dL C-Reactive Protein 11.20 H (0.00-0.80) mg/dL Total Protein 5.3 L (6.2-8.2) g/dL Albumin 2.9 L (3.8-4.9) g/dL Albumin/Globulin Ratio 1.21 L (1.60-3.17) g/dL Procalcitonin 0.18 H (0.02-0.09) ng/mL Microbiology - Last 24 Hours (Table) 11/15/22 19:41 Gram Stain - Preliminary Other - Other Wound Culture - Preliminary 11/15/22 15:48 Blood Culture - Final Blood 11/15/22 15:48 Blood Culture - Preliminary Blood No Growth after 24 hours Assessment and Plan (1) Decubitus ulcer Current Visit: Yes Status: Acute Code(s): L89.90 - PRESSURE ULCER OF UNSPECIFIED SITE, UNSPECIFIED STAGE SNOMED Code(s): 6631572158 (2) Fever Current Visit: Yes Status: Acute Code(s): R50.9 - FEVER, UNSPECIFIED SNOMED Code(s): 880277523 Plan: 1patient presented to hospital with sepsis in this patient who did have a low- grade fever elevated white count tachycardia source is likely infected sacral pressure ulcer as the patient currently do not have any other obvious focus of infection he is breathing comfortably on room air chest x-ray not show any consolidation urine has been negative and no evidence of lower extremity cellulitis or joint swelling wound did have minimal slough tissue and minimal surrounding redness we will need to cover for both gram-positive as well as gram-negative pathogen 2- CT of the sacrum with no evidence of any abscess or osteomyelitis, however did shows evidence of inflammatory changes suspicious for infected wound Patient did have elevated inflammatory markers with a sed rate of 75 and a CRP of 11.20 4-local wound care with Medihoney followed by moist dressing change daily 5-patient to continue with vancomycin pharmacy to dose with a target trough of 15 while watching kidney function and Vanco trough closely and Unasyn while lamont ting for the culture finalized Time with Patient: Less than 30
[2022-11-17] MEDS: SODIUM CHLORIDE 0.9% 1,000 ML IV SCH ×2 (17:42→20:00)
[2022-11-17] MEDS: ATORVASTATIN 80 MG TAB PO SCH (21:28)
[2022-11-17] MEDS: FERROUS SULFATE 325 MG TAB PO SCH (21:28)
[2022-11-17] MEDS: ASPIRIN 81 MG PO SCH (21:28)
[2022-11-17] MEDS: FOLIC ACID 1 MG TAB PO SCH (21:28)
--- NOTE | 2022-11-17 22:18 | P.PN ---
Subjective This is a pleasant 42 years old male with past medical history of CVA/TIA, Rheumatoid Arthritis, hypertension, hypothyroidism, osteoporosis. Patient is awake and alert, he states that he has a long history of rheumatoid arthritis and his currently on methotrexate and prednisone for this purpose, he says that his been having bedridden for a long time because of his arthritis and he is to live with his mom house however he got a stroke about 2 weeks ago and he wants to [facility], however he says bedridden most of the day there. It looks like he was sent for fever and leukocytosis of 20.1 per documents at his longterm. Patient currently is awake alert, answers a slowly, no slurred speech, no double vision, no chest pain or dyspnea. He complains from right hemiparesis because of the old stroke and bilateral lower extremity arthritis causing bilateral lower extremity weakness area also has some hand deformity related to his arthritis he denies chest pain dyspnea or coughing, no abdominal pain vomiting or diarrhea. No urinary complaints. he denies smoking, quit about 3 weeks ago when he went to rehab, no alcohol or illicit drugs. On admission no fever documented but is tachycardic around 117, blood pressure and oxygen saturation unacceptable With Leukocytosis of 16.7, Hemoglobin 11.2, Rest of CBC, BMP and Liver Enzymes Were Unremarkable. Urine Analysis Is Unremarkable. Influenza, RSV and Carver Viruses Are Undetected Chest x-ray: Left mid lung Atelectasis and/or scarring. Possible developing peripheral right upper to mid lung infiltrate and/or atelectasis. Trace bilateral effusion In the emergency room patient was started on IV vancomycin and received IV fluids 11/17/2022 Patient showing slight improvement in his clinical status, he is awake and alert, he still lethargic he still bedridden He denies abdominal pain and abdomen looks soft, he states that he had a bowel movement yesterday, however has poor appetite He is slightly tachycardic, heart rate is improving down to 113 today. Leukocytosis is slightly improved to 15,000, hemoglobin 9.7. ESR is elevated at 75 as well as procalcitonin Ultrasound of the leg is negative for DVT on both sides Remains on Unasyn and IV vancomycin and normal saline at 75 mL/h. He continued on home dose of prednisone. Methotrexate on hold. Active Medications Generic Name Dose Route Start Last Admin Trade Name Freq PRN Reason Stop Dose Admin Aspirin 81 mg 11/16/22 21:00 11/17/22 21:28 Aspirin 81 Mg PO 81 mg HS CHERYLE Administration Atorvastatin Calcium 80 mg 11/16/22 21:00 11/17/22 21:28 Atorvastatin 80 Mg Tab PO 80 mg HS CHERYLE Administration Carvedilol 12.5 mg 11/16/22 17:30 11/17/22 17:41 Carvedilol 12.5 Mg Tab PO 12.5 mg BID-W/MEALS CHERYLE Administration Duloxetine HCl 60 mg 11/17/22 09:00 11/17/22 10:24 Duloxetine Hcl 60 Mg Capsule.Dr PO 60 mg DAILY CHERYLE Administration Famotidine 20 mg 11/17/22 09:00 11/17/22 21:28 Famotidine 20 Mg Tab PO 20 mg BID CHERYLE Administration Ferrous Sulfate 325 mg 11/16/22 21:00 11/17/22 21:28 Ferrous Sulfate 325 Mg Tab PO 325 mg HS CHERYLE Administration Folic Acid 1 mg 11/16/22 21:00 11/17/22 21:28 Folic Acid 1 Mg Tab PO 1 mg HS CHERYLE Administration Heparin Sodium (Porcine) 5,000 unit 11/17/22 00:00 11/17/22 17:41 Heparin Sodium,Porcine/Pf 5,000 Unit/0.5 Ml Syringe SQ 5,000 unit Q8HR CHERYLE Administration Sodium Chloride 1,000 mls @ 20 mls/hr 11/15/22 18:45 11/17/22 20:00 Saline 0.9% IV Not Given .Q24H CHERYLE Vancomycin HCl 1,250 mg/ 250 mls @ 125 mls/hr 11/16/22 12:00 11/17/22 19:58 Sodium Chloride IVPB 125 mls/hr Q8H CHERYLE Administration Sodium Chloride 1,000 mls @ 75 mls/hr 11/16/22 09:45 11/17/22 17:42 Saline 0.9% IV 75 mls/hr .[id number] CHERYLE Administration Ampicillin Sodium/Sulbactam 100 mls @ 200 mls/hr 11/16/22 12:00 11/17/22 17:52 Sodium 3 gm/ Sodium Chloride IVPB 200 mls/hr Q6HR CHERYLE Administration Protocol Levothyroxine Sodium 50 mcg 11/17/22 05:00 11/17/22 05:30 Levothyroxine 50 Mcg Tab PO 50 mcg DAILY@0500 CHERYLE Administration Naloxone HCl 0.2 mg 11/15/22 18:43 Naloxone 0.4 Mg/Ml 1 Ml Vial IV Q2M PRN Opioid Reversal Nicotine 1 patch 11/16/22 09:45 11/17/22 10:25 Nicotine 21mg/24hr Patch TRANSDERM 1 patch DAILY CHERYLE Administration Oxycodone/Acetaminophen 1 each 11/16/22 03:42 11/17/22 19:57 Oxycodone-Apap 10-325mg 1 Each Tab PO 1 each Q4H PRN Administration Pain Prednisone 20 mg 11/17/22 09:00 11/17/22 10:24 Prednisone 20 Mg Tab PO 20 mg DAILY CHERYLE Administration Objective - Vital Signs Vital signs: Vital Signs Temp 98.5 F 11/17/22 08:00 Pulse 106 H 11/17/22 08:00 Resp 17 11/17/22 08:00 BP 142/94 11/17/22 08:00 Pulse Ox 98 11/17/22 08:00 FiO2 Intake & Output 11/16/22 11/17/22 11/17/22 18:59 06:59 18:59 Weight 72.575 kg Other: Voiding Method Diaper # Voids 2 # Bowel Movements 1 0 - Exam GENERAL: The patient is alert and oriented x3, not in any acute distress. Well developed, well nourished. HEENT: Pupils are round and equally reacting to light. EOMI. No scleral icterus. No conjunctival pallor. Normocephalic, atraumatic. No pharyngeal erythema. No thyromegaly. CARDIOVASCULAR: S1 and S2 present. No murmurs, rubs, or gallops. PULMONARY: Chest is clear to auscultation, no wheezing or crackles. ABDOMEN: Soft, nontender, nondistended, normoactive bowel sounds. No palpable organomegaly. -MUSCULOSKELETAL: No joint swelling or deformity. sacral pressure ulcer which looks infected -EXTREMITIES: No cyanosis, clubbing, or pedal edema. Mild ulnar deviation of the hands related to his rheumatoid disease NEUROLOGICAL: Gross neurological examination did not reveal any focal deficits. Chronic bilateral leg weakness SKIN: No rashes. no petechiae. - Labs CBC & Chem 7: 11/17/22 05:55 11/17/22 05:55 Labs: Abnormal Lab Results - Last 24 Hours (Table) 11/17/22 11/17/22 11/17/22 Range/Units 05:55 05:55 05:55 WBC 15.96 H (4.50-10.00) X 10*3/uL RBC 3.92 L (4.40-5.60) X 10*6/uL Hgb 9.7 L (13.0-17.0) g/dL Hct 32.5 L (39.6-50.0) % MCH 24.7 L (27.0-32.0) pg MCHC 29.8 L (32.0-37.0) g/dL RDW 20.9 H (11.5-14.5) % Plt Count 523 H (140-440) X 10*3/uL Immature Gran # 0.08 H (0.00-0.04) X 10*3/uL Neutrophils # 11.47 H (1.80-7.70) X 10*3/uL Monocytes # 1.20 H (0.20-1.00) X 10*3/uL ESR 75 H (0-15) mm/Hr BUN 4.1 L (9.0-27.0) mg/dL Creatinine 0.3 L (0.6-1.5) mg/dL Total Bilirubin 0.20 L (0.30-1.20) mg/dL C-Reactive Protein 11.20 H (0.00-0.80) mg/dL Total Protein 5.3 L (6.2-8.2) g/dL Albumin 2.9 L (3.8-4.9) g/dL Albumin/Globulin Ratio 1.21 L (1.60-3.17) g/dL Procalcitonin 0.18 H (0.02-0.09) ng/mL Microbiology - Last 24 Hours (Table) 11/15/22 19:41 Gram Stain - Preliminary Other - Other Wound Culture - Preliminary 11/15/22 15:48 Blood Culture - Final Blood 11/15/22 15:48 Blood Culture - Preliminary Blood No Growth after 24 hours Assessment and Plan Assessment: Sacral decubitus ulcer Sepsis secondary to above with fever and leukocytosis Sinus tachycardia secondary to sepsis, improving Hypertension Hypothyroidism History of CVA/TIA History of rheumatoid arthritis on methotrexate and prednisone 20 mg Osteoporosis on alternate Plan: Continue with IV antibiotic per ID team wore consult. Currently on IV vancomycin and Unasyn Start to obtain and follow-up wound culture Continue with prednisone but hold methotrexate total infection improve Continue gentle hydration Increased dose of Coreg to 12.5 mg Labs and medication were reviewed.. Continue same treatment. Continue with symptomatic treatment. Resume home medication. Monitor labs and vitals. DVT and GI prophylaxis. Further recommendations as per clinical course of the patient DVT prophylaxis: Subcutaneous heparin GI Prophylaxis: Pepcid Prognosis is guarded
[2022-11-18] MEDS: VANCOMYCIN 1,250 MG in SODIUM CHLORIDE 0.9% 250 ML IVPB SCH ×2 (03:56→14:32)
[2022-11-18] MEDS: SODIUM CHLORIDE 0.9% 1,000 ML IV SCH ×3 (03:57→20:15)
[2022-11-18 05:39] LABS: African American GFR (CKD) >90 (>60 ml/min/1.73 sqM); Non-African American GFR(CKD) >90 (>60 ml/min/1.73 sqM)
[2022-11-18] MEDS: AMPICILLIN-SULBACTAM 3 GM in SODIUM CHLORIDE 0.9% 100 ML IVPB SCH ×4 (05:55→23:52)
[2022-11-18] MEDS: LEVOTHYROXINE 50 MCG TAB PO SCH (05:56)
[2022-11-18] MEDS: carvediloL 12.5 MG TAB PO SCH ×2 (05:56→17:58)
[2022-11-18] MEDS: oxyCODONE-APAP 10-325MG 1 EACH TAB PO PRN ×4 (06:02→18:53)
[2022-11-18] MEDS: DULoxetine HCL 60 MG CAPSULE.DR PO SCH (10:02)
[2022-11-18] MEDS: FAMOTIDINE 20 MG TAB PO SCH ×2 (10:02→20:16)
[2022-11-18] MEDS: predniSONE 20 MG TAB PO SCH (10:02)
[2022-11-18] MEDS: NICOTINE 21MG/24HR PATCH TRANSDERM SCH (10:03)
[2022-11-18] MEDS: HEPARIN SODIUM,PORCINE/PF 5,000 UNIT/0.5 ML SYRINGE SQ SCH ×3 (10:03→23:52)
--- NOTE | 2022-11-18 17:16 | P.PN ---
Subjective Progress Note Date: 11/18/22 Principal diagnosis: Fever/infected sacral pressure ulcer Patient is a 42-year-old male with a past medical history significant for rheumatoid arthritis hypertension osteoporosis CVA TIA and apparently the patient has been bedridden for a long time currently at the [facility] for rehabilitation [facility] fever , with concern for infected sacral pressure ulcer, CT did not show any bony destruction however there was evidence of inflammatory changes around the coccyx suspicious for infected pressure ulcer on today's evaluation that is 11/18/2022, the patient remains to be afebrile, the patient is breathing comfortably on room air , the patient denies chest pain shortness of breath or cough no nausea no vomiting no abdominal pain or diarrhea Objective - Vital Signs Vital signs: Vital Signs Temp 98.3 F 11/18/22 14:00 Pulse 111 H 11/18/22 14:00 Resp 19 11/18/22 14:00 BP 150/102 11/18/22 14:00 Pulse Ox 96 11/18/22 14:00 FiO2 Intake & Output 11/17/22 11/18/22 11/18/22 18:59 06:59 18:59 Output Total 700 Balance -700 Output: Urine 700 Stool 0 Other: Voiding Method Diaper Diaper External Catheter - Exam GENERAL DESCRIPTION: Middle-aged male lying in bed in no distress RESPIRATORY SYSTEM: Unlabored breathing , decreased breath sounds at bases HEART: S1 S2 regular rate and rhythm , ABDOMEN: Soft , no tenderness EXTREMITIES: No edema feet - Labs CBC & Chem 7: 11/17/22 05:55 11/18/22 05:13 Labs: Abnormal Lab Results - Last 24 Hours (Table) 11/18/22 Range/Units 05:13 Creatinine 0.31 L (0.66-1.25) mg/dL Microbiology - Last 24 Hours (Table) 11/15/22 15:48 Blood Culture Gram Stain - Final Blood Blood Culture - Final Diphtheroid species 11/15/22 19:41 Gram Stain - Final Other - Other Wound Culture - Final 11/15/22 15:48 Blood Culture - Preliminary Blood No Growth after 48 hours Assessment and Plan (1) Decubitus ulcer Current Visit: Yes Status: Acute Code(s): L89.90 - PRESSURE ULCER OF UNSPECIFIED SITE, UNSPECIFIED STAGE SNOMED Code(s): 5024447471 (2) Fever Current Visit: Yes Status: Acute Code(s): R50.9 - FEVER, UNSPECIFIED SNOM ED Code(s): 468821916 Plan: 1patient presented to hospital with sepsis in this patient who did have a low- grade fever elevated white count tachycardia source is likely infected sacral pressure ulcer as the patient currently do not have any other obvious focus of infection he is breathing comfortably on room air chest x-ray not show any consolidation urine has been negative and no evidence of lower extremity cellulitis or joint swelling wound did have minimal slough tissue and minimal surrounding redness we will need to cover for both gram-positive as well as gram-negative pathogen 2- CT of the sacrum with no evidence of any abscess or osteomyelitis, however did shows evidence of inflammatory changes suspicious for infected wound Patient did have elevated inflammatory markers with a sed rate of 75 and a CRP of 11.20 4-local wound care with Medihoney followed by moist dressing change daily 5-patient with a positive blood culture with diptheroid species, is more likely contamination blood cultures will be repeated 6patient will need a PICC line for outpatient IV antibiotic therapy continue with the Unasyn discontinue vancomycin Family the bedside questions were answered Time with Patient: Less than 30
[2022-11-18] MEDS: FOLIC ACID 1 MG TAB PO SCH (20:15)
[2022-11-18] MEDS: ATORVASTATIN 80 MG TAB PO SCH (20:15)
[2022-11-18] MEDS: FERROUS SULFATE 325 MG TAB PO SCH (20:15)
[2022-11-18] MEDS: ASPIRIN 81 MG PO SCH (20:16)
--- NOTE | 2022-11-18 21:10 | P.PN ---
Subjective This is a pleasant 42 years old male with past medical history of CVA/TIA, Rheumatoid Arthritis, hypertension, hypothyroidism, osteoporosis. Patient is awake and alert, he states that he has a long history of rheumatoid arthritis and his currently on methotrexate and prednisone for this purpose, he says that his been having bedridden for a long time because of his arthritis and he is to live with his mom house however he got a stroke about 2 weeks ago and he wants to [facility], however he says bedridden most of the day there. It looks like he was sent for fever and leukocytosis of 20.1 per documents at his residential. Patient currently is awake alert, answers a slowly, no slurred speech, no double vision, no chest pain or dyspnea. He complains from right hemiparesis because of the old stroke and bilateral lower extremity arthritis causing bilateral lower extremity weakness area also has some hand deformity related to his arthritis he denies chest pain dyspnea or coughing, no abdominal pain vomiting or diarrhea. No urinary complaints. he denies smoking, quit about 3 weeks ago when he went to rehab, no alcohol or illicit drugs. On admission no fever documented but is tachycardic around 117, blood pressure and oxygen saturation unacceptable With Leukocytosis of 16.7, Hemoglobin 11.2, Rest of CBC, BMP and Liver Enzymes Were Unremarkable. Urine Analysis Is Unremarkable. Influenza, RSV and Carver Viruses Are Undetected Chest x-ray: Left mid lung Atelectasis and/or scarring. Possible developing peripheral right upper to mid lung infiltrate and/or atelectasis. Trace bilateral effusion In the emergency room patient was started on IV vancomycin and received IV fluids 11/17/2022 Patient showing slight improvement in his clinical status, he is awake and alert, he still lethargic he still bedridden He denies abdominal pain and abdomen looks soft, he states that he had a bowel movement yesterday, however has poor appetite He is slightly tachycardic, heart rate is improving down to 113 today. Leukocytosis is slightly improved to 15,000, hemoglobin 9.7. ESR is elevated at 75 as well as procalcitonin Ultrasound of the leg is negative for DVT on both sides Remains on Unasyn and IV vancomycin and normal saline at 75 mL/h. He continued on home dose of prednisone. Methotrexate on hold. 11/18/2022 Patient is improving clinically is more alert, more energetic. He feels better overall. He denies any abdominal pain no diarrhea. Abdomen looks soft. This tachycardia is improving and her crit down to 103 today, hemodynamically stable. He has positive blood culture with diphtheria most likely contaminated Wound culture showing polymicrobial. Vancomycin was discontinued and continued with Unasyn with the plan to obtain PICC line for IV antibiotics upon discharge per ID team. Patient remains on prednisone 20 mg for his rheumatoid arthritis, methotrexate is on hold which can be resumed later with the resolution of the infection Objective - Vital Signs Vital signs: Vital Signs Temp 98.4 F 11/18/22 08:00 Pulse 104 H 11/18/22 08:00 Resp 18 11/18/22 08:00 BP 168/85 11/18/22 08:00 Pulse Ox 94 L 11/18/22 08:00 FiO2 Intake & Output 11/17/22 11/18/22 11/18/22 18:59 06:59 18:59 Output Total 700 Balance -700 Output: Urine 700 Stool 0 Other: Voiding Method Diaper Diaper External Catheter - Exam GENERAL: The patient is alert and oriented x3, not in any acute distress. Well developed, well nourished. HEENT: Pupils are round and equally reacting to light. EOMI. No scleral icterus. No conjunctival pallor. Normocephalic, atraumatic. No pharyngeal erythema. No thyromegaly. CARDIOVASCULAR: S1 and S2 present. No murmurs, rubs, or gallops. PULMONARY: Chest is clear to auscultation, no wheezing or crackles. ABDOMEN: Soft, nontender, nondistended, normoactive bowel sounds. No palpable organomegaly. -MUSCULOSKELETAL: No joint swelling or deformity. sacral pressure ulcer which looks infected -EXTREMITIES: No cyanosis, clubbing, or pedal edema. Mild ulnar deviation of the hands related to his rheumatoid disease NEUROLOGICAL: Gross neurological examination did not reveal any focal deficits. Chronic bilateral leg weakness SKIN: No rashes. no petechiae. - Labs CBC & Chem 7: 11/17/22 05:55 11/18/22 05:13 Labs: Abnormal Lab Results - Last 24 Hours (Table) 11/18/22 Range/Units 05:13 Creatinine 0.31 L (0.66-1.25) mg/dL Microbiology - Last 24 Hours (Table) 11/15/22 15:48 Blood Culture Gram Stain - Final Blood Blood Culture - Final Diphtheroid species 11/15/22 19:41 Gram Stain - Final Other - Other Wound Culture - Final 11/15/22 15:48 Blood Culture - Preliminary Blood No Growth after 48 hours Assessment and Plan Assessment: Sacral decubitus ulcer Sepsis secondary to above with fever and leukocytosis Sinus tachycardia secondary to sepsis, improving Hypertension Hypothyroidism History of CVA/TIA History of rheumatoid arthritis on methotrexate and prednisone 20 mg Osteoporosis on alternate Plan: Continue with IV antibiotic per ID team wore consult. Currently on Unasyn with a plan for PICC line upon discharge Continue with prednisone , methotrexate is on hold and can be resumed with resolution of infection Continue gentle hydration Increased dose of Coreg to 12.5 mg Labs and medication were reviewed.. Continue same treatment. Continue with symptomatic treatment. Resume home medication. Monitor labs and vitals. DVT and GI prophylaxis. Further recommendations as per clinical course of the patient DVT prophylaxis: Subcutaneous heparin GI Prophylaxis: Pepcid Prognosis is guarded
[2022-11-19] MEDS: oxyCODONE-APAP 10-325MG 1 EACH TAB PO PRN ×3 (00:01→18:22)
[2022-11-19] MEDS: AMPICILLIN-SULBACTAM 3 GM in SODIUM CHLORIDE 0.9% 100 ML IVPB SCH ×4 (06:07→23:06)
[2022-11-19] MEDS: LEVOTHYROXINE 50 MCG TAB PO SCH (06:07)
[2022-11-19] MEDS: SODIUM CHLORIDE 0.9% 1,000 ML IV SCH ×3 (06:11→16:53)
[2022-11-19] MEDS: DULoxetine HCL 60 MG CAPSULE.DR PO SCH (08:40)
[2022-11-19] MEDS: HEPARIN SODIUM,PORCINE/PF 5,000 UNIT/0.5 ML SYRINGE SQ SCH ×3 (08:40→23:06)
[2022-11-19] MEDS: FAMOTIDINE 20 MG TAB PO SCH ×2 (08:40→21:16)
[2022-11-19] MEDS: NICOTINE 21MG/24HR PATCH TRANSDERM SCH (08:40)
[2022-11-19] MEDS: predniSONE 20 MG TAB PO SCH (08:40)
[2022-11-19] MEDS: carvediloL 12.5 MG TAB PO SCH ×2 (08:40→16:52)
[2022-11-19 10:47] LABS: Basophils # (A) 0.06 X 10*3/uL (0.00-0.10); Basophils % (A) 0.5 %; Eosinophils # (A) 0.11 X 10*3/uL (0.04-0.35); Eosinophils % (A) 0.9 %; HCT 32.1 % (39.6-50.0); HGB 9.5 g/dL (13.0-17.0); Immature Grans, Automated 0.5 %; Lymphocytes # (A) 2.74 X 10*3/uL (0.90-5.00); MCH 24.7 pg (27.0-32.0); MCHC 29.6 g/dL (32.0-37.0); MCV 83.6 fL (80.0-97.0); Mean Platelet Volume 9.7 fL (9.5-12.2); Monocytes % (A) 9.2 %; NRBC Per 100 WBC 0 /100 WBCS (0.0-0.0); Neutrophils # (A) 7.85 X 10*3/uL (1.80-7.70); Neutrophils % (A) 65.9 %; Platelet Count 504 X 10*3/uL (140-440); RBC 3.84 X 10*6/uL (4.40-5.60); RDW 20.9 % (11.5-14.5); WBC 11.92 X 10*3/uL (4.50-10.00)
[2022-11-19 10:52] LABS: ALT 40 U/L (10-49); AST 29 U/L (14-35); Albumin 2.8 g/dL (3.8-4.9); Albumin/Globulin Ratio 1.22 (1.60-3.17); Alkaline Phosphatase 81 U/L (41-126); BUN/Creat Ratio 8.57 Ratio (12.00-20.00); Blood Urea Nitrogen 3.1 mg/dL (9.0-27.0); Calcium 8.5 mg/dL (8.7-10.3); Carbon Dioxide 23.7 mmol/L (20.0-27.5); Chloride 103 mmol/L (96-109); Globulin 2.3 g/dL (1.6-3.3); Glucose 81 mg/dL (70-110); Non-African American GFR(CKD) 154.4 (60.0-200.0); Potassium 3.7 mmol/L (3.5-5.5); Sodium 140 mmol/L (135-145); Total Bilirubin <0.15 mg/dL (0.30-1.20); Total Protein 5.1 g/dL (6.2-8.2)
[2022-11-19 12:27] LABS: Erythrocyte Sedimentation Rate 54 mm/Hr (0-15)
[2022-11-19] MEDS ORDERED: PROMETHAZINE 25 MG TAB PO PRN (13:40)
[2022-11-19] MEDS ORDERED: MENTHOL-ZINC OXIDE OINT 113 GM TUBE TOPICAL PRN (13:40)
--- NOTE | 2022-11-19 17:50 | CDI ---
Documentation Clarification Form Date: 11/19/2022 5:25:30 PM From: Susan Richmond RN, CCDS Admit Date: 11/15/2022 6:47:00 PM Patient Name: Martell Morton Visit Number: [id number] Discharge Date: ATTENTION: The Clinical Documentation Specialists (CDI) and [facility] Coding Staff appreciate your assistance in clarifying documentation. Please respond to the clarification below the line at the bottom and electronically sign. The CDI & [facility] Coding staff will review the response and follow-up if needed. Please note: Queries are made part of the Legal Health Record. If you have any questions, please contact the author of this message via ITS. Dr. Karyn Hernandez A coccyx pressure ulcer is documented in the ED assessment, H/P and ID consult and subsequent progress notes. Additional clarification regarding the stage of the pressure ulcer is requested. History/Risk Factors: CVA, TIA, Rheumatoid arthritis, Hypertension, Osteoporosis. Bedridden Clinical Indicators: 42-year-old male who is beddren, present to ER form [facility] for evaluation of a sacral pressure ulcer on presentation. 11/15 Vital signs: 132/92 110 18 99.2 97% RA 11/15 Labs: WBC 16.7 HGB 11.2 Neutrophils 15.4 11/15 Nursing wound assessment: coccyx pressure injury stage III Location: Coccyx Wound description: Slight odor, Treatment: Medihoney followed by moist dressing change daily. 2 Person assist, TURN Q2 Hrs. PICC line for outpatient IV antibiotic therapy Unasyn 3 GM IVPB 2 6 HRS 11/16-11/19 Vancomycin 1,250 MG IVPB ONCE (PTD) 11/18 ID progress note: Decubitus ulcer Please clarify the stage of Sacral pressure ulcer [insert location], if know [ ] Stage 1 Pressure Ulcer, Coccyx [ ] Stage 2 Pressure Ulcer, Coccyx [ x] Stage 3 Pressure Ulcer, Coccyx [ ] Stage 4 Pressure Ulcer, Coccyx, [ ] Unstageable Pressure ulcer, Coccyx [ ] Other condition, please specify [ ] Unable to determine Clinical Definitions: Stage 1 Pressure Ulcer: intact skin, non-blanching redness of local area Stage 2 Pressure Ulcer: Partial thickness, loss of dermis, pink wound bed Stage 3 Pressure Ulcer: Full thickness tissue loss Stage 4 Pressure Ulcer: Full thickness tissue loss with exposed bone, tendon, or muscle. Unstageable pressure ulcer: Full thickness tissue loss in which the base of the ulcer is covered by slough (yellow, arnold, main, green or brown) and/or eschar (arnold, brown or black) in the wound bed. (Template Last Revised: October 2020) MTDD
[2022-11-19] MEDS: methocarbamoL 500 MG TAB PO SCH (18:22)
[2022-11-19] MEDS: ASPIRIN 81 MG PO SCH (21:16)
[2022-11-19] MEDS: MULTIVITAMINS, THERA 1 EACH TAB PO SCH (21:16)
[2022-11-19] MEDS: FERROUS SULFATE 325 MG TAB PO SCH (21:17)
[2022-11-19] MEDS: ATORVASTATIN 80 MG TAB PO SCH (21:17)
[2022-11-19] MEDS: CYANOCOBALAMIN 500 MCG TAB PO SCH (21:17)
[2022-11-19] MEDS: MIRTAZAPINE 15 MG TAB PO SCH (21:17)
[2022-11-19] MEDS: sulfaSALAzine 500 MG TAB PO SCH (21:17)
[2022-11-19] MEDS: MOXIFLOXACIN HCL 0.5% DROPS 3 ML BTL LEFT EYE SCH ×2 (21:17→21:27)
[2022-11-19] MEDS: FOLIC ACID 1 MG TAB PO SCH (21:17)
--- NOTE | 2022-11-19 21:35 | P.PN ---
Subjective Progress Note Date: 11/19/22 Principal diagnosis: Fever/infected sacral pressure ulcer Patient is a 42-year-old male with a past medical history significant for rheumatoid arthritis hypertension osteoporosis CVA TIA and apparently the patient has been bedridden for a long time currently at the [facility] for rehabilitation patient has been sent to the ER from the detention for evaluation of fever , with concern for infected sacral pressure ulcer, CT did not show any bony destruction however there was evidence of inflammatory changes around the coccyx suspicious for infected pressure ulcer on today's evaluation that is 11/19/2022, the patient continues to be afebrile, the patient is breathing comfortably on room air , the patient denies chest pain shortness of breath or cough, no nausea no vomiting no abdominal pain or diarrhea, pt has developed some discomfort and redness to the left eye Objective - Vital Signs Vital signs: Vital Signs Temp 98.2 F 11/19/22 07:15 Pulse 106 H 11/19/22 07:15 Resp 17 11/19/22 07:15 BP 149/94 11/19/22 07:15 Pulse Ox 98 11/19/22 07:15 FiO2 Intake & Output 11/18/22 11/19/22 11/19/22 18:59 06:59 18:59 Other: Voiding Method External Catheter External Catheter # Voids 3 - Exam GENERAL DESCRIPTION: Middle-aged male lying in bed in no distress RESPIRATORY SYSTEM: Unlabored breathing , decreased breath sounds at bases HEART: S1 S2 regular rate and rhythm , ABDOMEN: Soft , no tenderness EXTREMITIES: No edema feet - Labs CBC & Chem 7: 11/19/22 06:37 11/19/22 06:37 Labs: Abnormal Lab Results - Last 24 Hours (Table) 11/19/22 11/19/22 Range/Units 06:37 06:37 WBC 11.92 H (4.50-10.00) X 10*3/uL RBC 3.84 L (4.40-5.60) X 10*6/uL Hgb 9.5 L (13.0-17.0) g/dL Hct 32.1 L (39.6-50.0) % MCH 24.7 L (27.0-32.0) pg MCHC 29.6 L (32.0-37.0) g/dL RDW 20.9 H (11.5-14.5) % Plt Count 504 H (140-440) X 10*3/uL Immature Gran # 0.06 H (0.00-0.04) X 10*3/uL Neutrophils # 7.85 H (1.80-7.70) X 10*3/uL Monocytes # 1.10 H (0.20-1.00) X 10*3/uL BUN 3.1 L (9.0-27.0) mg/dL Creatinine 0.4 L (0.6-1.5) mg/dL BUN/Creatinine Ratio 8.57 L (12.00-20.00) Ratio Calcium 8.5 L (8.7-10.3) mg/dL Total Bilirubin <0.15 L (0.30-1.20) mg/dL C-Reactive Protein 6.00 H (0.00-0.80) mg/dL Total Protein 5.1 L (6.2-8.2) g/dL Albumin 2.8 L (3.8-4.9) g/dL Albumin/Globulin Ratio 1.22 L (1.60-3.17) g/dL Microbiology - Last 24 Hours (Table) 11/15/22 15:48 Blood Culture - Preliminary Blood No Growth after 72 hours 11/15/22 15:48 Blood Culture Gram Stain - Final Blood Blood Culture - Final Diphtheroid species 11/15/22 19:41 Gram Stain - Final Other - Other Wound Culture - Final Assessment and Plan (1) Decubitus ulcer Current Visit: Yes Status: Acute Code(s): L89.90 - PRESSURE ULCER OF UNSPECIFIED SITE, UNSPECIFIED STAGE SNOMED Code(s): 4361766807 (2) Fever Current Visit: Yes Status: Acute Code(s): R50.9 - FEVER, UNSPECIFIED SNOM ED Code(s): 500472693 Plan: 1patient presented to hospital with sepsis in this patient who did have a low- grade fever elevated white count tachycardia source is likely infected sacral pressure ulcer as the patient currently do not have any other obvious focus of infection he is breathing comfortably on room air chest x-ray not show any consolidation urine has been negative and no evidence of lower extremity cellulitis or joint swelling wound did have minimal slough tissue and minimal surrounding redness we will need to cover for both gram-positive as well as gram-negative pathogen 2- CT of the sacrum with no evidence of any abscess or osteomyelitis, however did shows evidence of inflammatory changes suspicious for infected wound Patient did have elevated inflammatory markers with a sed rate of 75 and a CRP of 11.20 4-local wound care with Medihoney followed by moist dressing change daily 5-patient with a positive blood culture with diptheroid species, is more likely contamination blood cultures has been repeated 6patient will need a PICC line for outpatient IV antibiotic therapy continue with the Unasyn 7- Left sided conjunctivitis will add moxifloxacin eye drops Time with Patient: Less than 30
--- NOTE | 2022-11-20 00:20 | PN ---
PROGRESS NOTE DATE OF SERVICE: 11/19/2022 SUBJECTIVE: This is a 42-year-old gentleman admitted with extensive decubitus and possible sepsis, had diphtheroids grown from the blood culture. No chest pain. No palpitations. No fever. OBJECTIVE: VITAL SIGNS: On exam, pulse 106, blood pressure 140/94, respirations 17. CHEST: Clear to auscultation. CARDIOVASCULAR: S1 and S2. ABDOMEN: Soft. PELVIC: Decubitus present. LABORATORY DATA: Labs are reviewed. ASSESSMENT: 1. Sacral decubitus ulcer with possible sepsis with fever, leukocytosis, and sinus tachycardia. 2. Hypertension. 3. Hypothyroidism. 4. History of cerebrovascular accident, transient ischemic attack. 5. Multiple medical issues. RECOMMENDATIONS: Recommend to continue current medications. Continue symptomatic treatment. Recommend to repeat labs. Antibiotics. Closely follow with Infectious Disease. Guarded prognosis. Further recommendations to follow. See orders for further details. MMODL / IJN: [id number] /
[2022-11-20] MEDS: AMPICILLIN-SULBACTAM 3 GM in SODIUM CHLORIDE 0.9% 100 ML IVPB SCH ×3 (06:11→17:40)
[2022-11-20] MEDS: carvediloL 12.5 MG TAB PO SCH ×2 (06:11→17:39)
[2022-11-20] MEDS: LEVOTHYROXINE 50 MCG TAB PO SCH (06:11)
[2022-11-20] MEDS: PANTOPRAZOLE 40 MG TABLET PO SCH (06:11)
[2022-11-20] MEDS: methocarbamoL 500 MG TAB PO SCH ×3 (06:12→19:25)
[2022-11-20] MEDS: oxyCODONE-APAP 10-325MG 1 EACH TAB PO PRN ×4 (06:28→21:41)
[2022-11-20] MEDS: sulfaSALAzine 500 MG TAB PO SCH ×2 (09:29→21:41)
[2022-11-20] MEDS: DULoxetine HCL 60 MG CAPSULE.DR PO SCH (09:30)
[2022-11-20] MEDS: MOXIFLOXACIN HCL 0.5% DROPS 3 ML BTL LEFT EYE SCH ×3 (09:30→21:42)
[2022-11-20] MEDS: FAMOTIDINE 20 MG TAB PO SCH ×2 (09:30→21:42)
[2022-11-20] MEDS: NICOTINE 21MG/24HR PATCH TRANSDERM SCH (09:30)
[2022-11-20] MEDS: predniSONE 20 MG TAB PO SCH (09:31)
[2022-11-20] MEDS: HEPARIN SODIUM,PORCINE/PF 5,000 UNIT/0.5 ML SYRINGE SQ SCH ×2 (09:31→17:39)
[2022-11-20] MEDS: SODIUM CHLORIDE 0.9% 1,000 ML IV SCH ×3 (09:42→21:34)
[2022-11-20 10:05] LABS: African American GFR (CKD) >90 (>60 ml/min/1.73 sqM); Anion Gap 10 mmol/L; Blood Urea Nitrogen <2 mg/dL (9-20); Calcium 8.6 mg/dL (8.4-10.2); Carbon Dioxide 25 mmol/L (22-30); Chloride 104 mmol/L (98-107); Glucose 95 mg/dL (74-99); Non-African American GFR(CKD) >90 (>60 ml/min/1.73 sqM); Potassium 3.4 mmol/L (3.5-5.1); Sodium 139 mmol/L (137-145)
[2022-11-20] MEDS ORDERED: Potassium Replacement Protocol 1 EACH MISC MISCELLANE PRN (10:22)
[2022-11-20] MEDS ORDERED: Magnesium Replacement Protocol 1 EACH MISC MISCELLANE PRN (10:22)
[2022-11-20 10:34] LABS: Anisocytosis Slight; Basophils % (A) 0 %; Eosinophils # (A) 0.1 k/uL (0-0.7); Eosinophils % (A) 1 %; HCT 35.6 % (39.0-53.0); HGB 10.8 gm/dL (13.0-17.5); Hypochromasia Slight; Lymphocytes % (A) 23 %; MCH 25.2 pg (25.0-35.0); MCHC 30.3 g/dL (31.0-37.0); MCV 83.1 fL (80.0-100.0); Mean Platelet Volume 8.7; Microcytosis Slight; Monocytes # (A) 0.8 k/uL (0-1.0); Monocytes % (A) 6 %; Neutrophils # (A) 9.2 k/uL (1.3-7.7); Neutrophils % (A) 69 %; Platelet Count 513 k/uL (150-450); RBC 4.28 m/uL (4.30-5.90); RDW 19.7 % (11.5-15.5); WBC 13.3 k/uL (3.8-10.6)
--- NOTE | 2022-11-20 14:12 | PN ---
PROGRESS NOTE DATE OF SERVICE: 11/20/2022 SUBJECTIVE: This is a 42-year-old gentleman who was admitted with extensive decubitus ulcer, slated to have a PICC line today. No chest pain, no palpitations, no fever. OBJECTIVE: VITAL SIGNS: Pulse is 74, blood pressure 140/80, and respirations 15. CHEST: Clear to auscultation. ABDOMEN: Soft, decubitus ulcer present. LABORATORY DATA: Reviewed. ASSESSMENT: 1. Sacral decubitus ulcer with possible with fever, leukocytosis, and sinus tachycardia. 2. Hypertension. 3. Hypothyroidism. 4. History of cerebrovascular accident, transient ischemic attack. 5. Multiple medical issues. RECOMMENDATIONS: To continue current management, continue symptomatic treatment. Otherwise, the cultures are showing diphtheroids. Blood cultures showing diphtheroid. Otherwise, PICC line. Possible outpatient antibiotics. Further recommendations to follow. Replace potassium. HARSHAD / VETON: [id number] /
[2022-11-20 16:48] LABS: Prothrombin Time 10.6 sec (9.0-12.0)
--- NOTE | 2022-11-20 17:09 | P.PN ---
Subjective Progress Note Date: 11/20/22 Principal diagnosis: Fever/infected sacral pressure ulcer Patient is a 42-year-old male with a past medical history significant for rheumatoid arthritis hypertension osteoporosis CVA TIA and apparently the patient has been bedridden for a long time currently at the [facility] for rehabilitation patient has been sent to the ER from the alf for evaluation of fever , with concern for infected sacral pressure ulcer, CT did not show any bony destruction however there was evidence of inflammatory changes around the coccyx suspicious for infected pressure ulcer on today's evaluation that is 11/20/2022, the patient remains to be afebrile, the patient is breathing comfortably on room air , the patient denies chest pain shortness of breath or cough, no nausea no vomiting no abdominal pain or diarrhea, patient left is swelling and discomfort has decreased in intensity Objective - Vital Signs Vital signs: Vital Signs Temp 98.3 F 11/20/22 07:36 Pulse 103 H 11/20/22 07:36 Resp 18 11/20/22 07:36 BP 153/115 11/20/22 07:36 Pulse Ox 99 11/20/22 07:36 FiO2 Intake & Output 11/19/22 11/20/22 11/20/22 18:59 06:59 18:59 Output Total 400 0 Balance -400 0 Weight 72.575 kg Output: Urine 400 Stool 0 Other: Voiding Method External Catheter Diaper Incontinent # Voids 3 - Exam GENERAL DESCRIPTION: Middle-aged male lying in bed in no distress RESPIRATORY SYSTEM: Unlabored breathing , decreased breath sounds at bases HEART: S1 S2 regular rate and rhythm , ABDOMEN: Soft , no tenderness EXTREMITIES: No edema feet - Labs CBC & Chem 7: 11/20/22 08:56 11/20/22 08:56 Labs: Abnormal Lab Results - Last 24 Hours (Table) 11/20/22 11/20/22 Range/Units 08:56 08:56 WBC 13.3 H (3.8-10.6) k/uL RBC 4.28 L (4.30-5.90) m/uL Hgb 10.8 L (13.0-17.5) gm/dL Hct 35.6 L (39.0-53.0) % MCHC 30.3 L (31.0-37.0) g/dL RDW 19.7 H (11.5-15.5) % Plt Count 513 H (150-450) k/uL Neutrophils # 9.2 H (1.3-7.7) k/uL Potassium 3.4 L (3.5-5.1) mmol/L BUN <2 L (9-20) mg/dL Creatinine 0.34 L (0.66-1.25) mg/dL Microbiology - Last 24 Hours (Table) 11/15/22 15:48 Blood Culture - Preliminary Blood No Growth after 96 hours 11/18/22 15:52 Blood Culture - Preliminary Blood No Growth after 24 hours 11/15/22 19:41 Gram Stain - Final Other - Other Wound Culture - Final Assessment and Plan (1) Decubitus ulcer Current Visit: Yes Status: Acute Code(s): L89.90 - PRESSURE ULCER OF UNSPECIFIED SITE, UNSPECIFIED STAGE SNOMED Code(s): 7186406642 (2) Fever Current Visit: Yes Status: Acute Code(s): R50.9 - FEVER, UNSPECIFIED SNOMED Code(s): 379574476 Plan: 1patient presented to hospital with sepsis in this patient who did have a low- grade fever elevated white count tachycardia source is likely infected sacral pressure ulcer as the patient currently do not have any other obvious focus of infection he is breathing comfortably on room air chest x-ray not show any consolidation urine has been negative and no evidence of lower extremity cellulitis or joint swelling wound did have minimal slough tissue and minimal surrounding redness we will need to cover for both gram-positive as well as gram-negative pathogen 2- CT of the sacrum with no evidence of any abscess or osteomyelitis, however did shows evidence of inflammatory changes suspicious for infected wound Patient did have elevated inflammatory markers with a sed rate of 75 and a CRP of 11.20 4-local wound care with Medihoney followed by moist dressing change daily 5-patient with a positive blood culture with diptheroid species, is more likely contamination blood cultures has been repeated, which are negative so far 6patient will need a PICC line for outpatient IV antibiotic therapy continue with the Unasyn 4-6 weeks 7- Left sided conjunctivitis continue with moxifloxacin eye drops Time with Patient: Less than 30
[2022-11-20] MEDS: MIRTAZAPINE 15 MG TAB PO SCH (21:42)
[2022-11-20] MEDS: ATORVASTATIN 80 MG TAB PO SCH (21:42)
[2022-11-20] MEDS: ASPIRIN 81 MG PO SCH (21:42)
[2022-11-20] MEDS: MULTIVITAMINS, THERA 1 EACH TAB PO SCH (21:42)
[2022-11-20] MEDS: FERROUS SULFATE 325 MG TAB PO SCH (21:42)
[2022-11-20] MEDS: FOLIC ACID 1 MG TAB PO SCH (21:42)
[2022-11-20] MEDS: CYANOCOBALAMIN 500 MCG TAB PO SCH (21:42)
[2022-11-21] MEDS: AMPICILLIN-SULBACTAM 3 GM in SODIUM CHLORIDE 0.9% 100 ML IVPB SCH ×4 (00:03→17:01)
[2022-11-21] MEDS: HEPARIN SODIUM,PORCINE/PF 5,000 UNIT/0.5 ML SYRINGE SQ SCH ×3 (00:04→15:39)
[2022-11-21] MEDS: LEVOTHYROXINE 50 MCG TAB PO SCH (05:54)
[2022-11-21] MEDS: oxyCODONE-APAP 10-325MG 1 EACH TAB PO PRN ×3 (05:55→17:00)
[2022-11-21] MEDS: PANTOPRAZOLE 40 MG TABLET PO SCH (06:56)
[2022-11-21] MEDS: carvediloL 12.5 MG TAB PO SCH ×2 (06:56→17:00)
[2022-11-21] MEDS: methocarbamoL 500 MG TAB PO SCH ×2 (06:56→12:21)
[2022-11-21] MEDS: FAMOTIDINE 20 MG TAB PO SCH (08:50)
[2022-11-21] MEDS: DULoxetine HCL 60 MG CAPSULE.DR PO SCH (08:50)
[2022-11-21] MEDS: predniSONE 20 MG TAB PO SCH (08:50)
[2022-11-21] MEDS: MOXIFLOXACIN HCL 0.5% DROPS 3 ML BTL LEFT EYE SCH ×2 (08:51→15:39)
[2022-11-21] MEDS: NICOTINE 21MG/24HR PATCH TRANSDERM SCH (08:51)
[2022-11-21] MEDS: sulfaSALAzine 500 MG TAB PO SCH (09:06)
[2022-11-21 12:03] LABS: African American GFR (CKD) >90 (>60 ml/min/1.73 sqM); Anion Gap 6 mmol/L; Blood Urea Nitrogen <2 mg/dL (9-20); Calcium 8.6 mg/dL (8.4-10.2); Carbon Dioxide 27 mmol/L (22-30); Chloride 104 mmol/L (98-107); Glucose 93 mg/dL (74-99); Magnesium 1.8 mg/dL (1.6-2.3); Non-African American GFR(CKD) >90 (>60 ml/min/1.73 sqM); Potassium 3.7 mmol/L (3.5-5.1); Sodium 137 mmol/L (137-145)
--- NOTE | 2022-11-21 13:57 | P.DS ---
Providers Date of admission: 11/15/22 18:47 Expected date of discharge: 11/21/22 Attending physician: Rita Funes Consults: 11/16/22 09:58 Consult Physician Urgent Consulting Provider: Karyn Hernandez Consult Reason/Comments: sepsis, possible infected docubitus ulcer Do you want consulting provider notified?: Already Contacted Primary care physician: Physician Nonstaff Hospital Course: Final diagnosis Sacral decubitus ulcer with fever, leukocytosis, sinus tach, possible sepsis, present on admission Hypertension Rheumatoid arthritis History of CVA/TIA with right side deficits, mostly bedbound Former tobacco user GI prophylaxis Findings DVT prophylaxis Full code Discharge disposition Patient is being discharged in a stable condition with guarded prognosis to [facility]. Patient will follow-up with primary care provider at the [facility] as well as his primary care provider in [place] in the outpatient setting upon discharge from [facility]. Patient is to continue with IV antibiotics per ID recommendations for the next 6 weeks and has received a PICC line. Patient to follow-up with infectious disease in 1-2 weeks as scheduled. Total time taken is greater than 35 minutes. Hospital course This is a 42-year-old male who was recently admitted with fever and leukocytosis found to have an extensive decubitus ulcer being closely monitored. Patient did have features of sepsis, present on admission and was evaluated by infectious disease. Patient maintained on IV antibiotics along with local wound care and has received a PICC line and patient will be continued on IV antibiotics for the next 6 weeks with close outpatient follow-up with Dr. Hernandez. Patient to continue with local wound care as mentioned below along with dysphasia 3 chopped diet and aspiration precautions with head of the bed elevated 30-45 at all times. Patient has been cleared by consultation for discharge and has received insurance authorization. Currently no reports of chest pain, shortness of breath, or palpitations. Patient is afebrile. No reports of nausea or vomiting and patient is tolerating diet. Patient will be going to [facility] today. Guarded prognosis. Physical exam: Gen: This is a 42-year-old male who is awake, alert and oriented 2, ill- appearing, well-nourished HEENT: Head is atraumatic, normocephalic. Pupils equal, round. Sclerae is anicteric. NECK: Supple. No JVD. No lymphadenopathy. No thyromegaly. LUNGS: Diminished breath sounds bilaterally with no wheezes or rhonchi. No intercostal retractions. HEART: S1, S2 are muffled ABDOMEN: Soft. Bowel sounds are present. No masses. No tenderness. EXTREMITIES: No pedal edema. No calf tenderness. NEUROLOGICAL: Patient is awake, alert and oriented x2. Diffusely weak with right side deficits that are flaccid Please refer to medication reconciliation sheet for a list of medications. The impression and plan of care has been dictated by Teresa Perdomo, Nurse Practitioner as directed. Dr. Marin MD I have performed a history and examination and MDM of this patient, discussed the same with the dictator, and agree with the dictator's assessment and plan as written ,documented as a scribe. Based on total visit time, I have performed more than 50% of the visit. Patient Condition at Discharge: Fair Plan - Discharge Summary Discharge Rx Participant: No New Discharge Prescriptions: New Moxifloxacin [Vigamox 0.5%] 1 drops LEFT EYE TID ml Heparin Sodium,Porcine [Heparin Sodium] 5,000 unit SQ Q12HR 30 Days #60 each Ampicillin-Sulbactam [Unasyn 3 gm vial] 3 gm IVPB Q6HR 42 Days #168 each Continue sulfaSALAzine [Sulfasalazine] 1,500 mg PO BID carvediloL [Coreg] 12.5 mg PO BID Multivitamins, Thera [Multivitamin (formulary)] 1 tab PO HS Nicotine 21Mg/24Hr Patch [Habitrol] 1 patch TRANSDERM DAILY metHOTREXate sodium [Methotrexate] 25 mg PO FR Mirtazapine [Remeron] 15 mg PO HS DULoxetine HCL [Cymbalta] 60 mg PO DAILY Atorvastatin Calcium [Lipitor] 80 mg PO HS Menthol [Biofreeze] 1 applic TOPICAL Q8H PRN PRN Reason: LEFT SHOULDER AND BACK PAIN methocarbamoL [Robaxin] 500 mg PO TID@0700,1300,1900 Levothyroxine Sodium [Synthroid] 50 mcg PO DAILY@0500 predniSONE [Deltasone] 20 mg PO DAILY Omeprazole [PriLOSEC] 20 mg PO DAILY Folic Acid 1 mg PO HS Ferrous Sulfate [Iron (65 MG Elemental)] 325 mg PO HS Cyanocobalamin [Vitamin B-12] 500 mcg PO HS Aspirin 81 mg PO HS Alendronate Sodium [Fosamax] 70 mg PO FR Promethazine HCl 12.5 mg PO Q6H PRN PRN Reason: Nausea And Vomiting oxyCODONE-APAP 10-325MG [Percocet 10-325 mg] 1 tab PO Q4H PRN #3 tab PRN Reason: Pain Discharge Medication List Alendronate Sodium [Fosamax] 70 mg PO FR 11/15/22 [History] Aspirin 81 mg PO HS 11/15/22 [History] Atorvastatin Calcium [Lipitor] 80 mg PO HS 11/15/22 [History] Cyanocobalamin [Vitamin B-12] 500 mcg PO HS 11/15/22 [History] DULoxetine HCL [Cymbalta] 60 mg PO DAILY 11/15/22 [History] Ferrous Sulfate [Iron (65 MG Elemental)] 325 mg PO HS 11/15/22 [History] Folic Acid 1 mg PO HS 11/15/22 [History] Levothyroxine Sodium [Synthroid] 50 mcg PO DAILY@0500 11/15/22 [History] Menthol [Biofreeze] 1 applic TOPICAL Q8H PRN 11/15/22 [History] Mirtazapine [Remeron] 15 mg PO HS 11/15/22 [History] Multivitamins, Thera [Multivitamin (formulary)] 1 tab PO HS 11/15/22 [History] Nicotine 21Mg/24Hr Patch [Habitrol] 1 patch TRANSDERM DAILY 11/15/22 [History] Omeprazole [PriLOSEC] 20 mg PO DAILY 11/15/22 [History] Promethazine HCl 12.5 mg PO Q6H PRN 11/15/22 [History] carvediloL [Coreg] 12.5 mg PO BID 11/15/22 [History] metHOTREXate sodium [Methotrexate] 25 mg PO FR 11/15/22 [History] methocarbamoL [Robaxin] 500 mg PO TID@0700,1300,1900 11/15/22 [History] predniSONE [Deltasone] 20 mg PO DAILY 11/15/22 [History] sulfaSALAzine [Sulfasalazine] 1,500 mg PO BID 11/15/22 [History] Ampicillin-Sulbactam [Unasyn 3 gm vial] 3 gm IVPB Q6HR 42 Days #168 each 11/21/22 [Rx] Heparin Sodium,Porcine [Heparin Sodium] 5,000 unit SQ Q12HR 30 Days #60 each 11/21/22 [Rx] Moxifloxacin [Vigamox 0.5%] 1 drops LEFT EYE TID ml 11/21/22 [Rx] oxyCODONE-APAP 10-325MG [Percocet 10-325 mg] 1 tab PO Q4H PRN #3 tab 11/21/22 [Rx] Follow up Appointment(s)/Referral(s): Nonstaff,Physician [Primary Care Provider] - 1-2 days Karyn Hernandez MD [STAFF PHYSICIAN] - 1 Week Ambulatory/Diagnostic Orders: Complete Blood Count w/diff [LAB.AMB] Time Frame: 3 Days, Location: None Selected Activity/Diet/Wound Care/Special Instructions: Patient is going to [facility] as tolerated Continue with IV antibiotic therapy for the next 6 weeks and follow-up with infectious disease in 1-2 weeks continue eyedrops to the eyes as directed for 7 days Continue indwelling Carias catheter Continue local wound care to the sacrum with Leland honey followed by a moist dressing is changed daily or if becoming soiled Continue dysphasia 3 chopped diet with supervision with meals and aspiration were cautioned head of the bed elevated 30-45 at all times Follow-up with infectious disease outpatient in 1-2 weeks Follow-up primary care provider on discharge Discharge Disposition: TRANSFER TO SNF/F
--- NOTE | 2022-11-21 15:28 | IR ---
PICC LINE PLACEMENT: HISTORY: Infection requiring long-term antibiotic therapy PROCEDURE: Ultrasound and fluoroscopic guidance of PICC line placement. COMPLICATIONS: None ANESTHESIA: 1. 1% Lidocaine locally. FINDINGS/TECHNIQUE: The procedure was explained to the patient. The risks, complications, benefits and alternatives were discussed and any questions were answered. Informed consent was obtained. The patient was placed supine on the fluoroscopic table and prepped and draped in the usual sterile fash ion. Utilizing a 21 gauge needle and sonographic and fluoroscopic guidance, access in the right bas ilic vein was achieved and there is placement of a 0.018 guidewire. The vein is patent. A 4-F sheat h was placed over the guidewire. The guidewire and dilator were removed and a 4-F. PICC line was wang kera through the sheath with the tip at the level of the SVC. The sheath was removed, the catheter wa s flushed and sutured into position. The patient was stable throughout the procedure and remained st able upon discharge from the Department of Radiology. The vein puncture was patent under ultrasound. A main scale image was obtained to document patency of the vein punctured. All elements of the maximal barrier technique were utilized. FLUOROSCOPY TIME: DAP 0.0594Gy cm2 IMPRESSION: Successful PICC line placement under ultrasound and fluoroscopic guidance.
--- NOTE | 2022-11-21 15:32 | P.PN ---
Subjective Progress Note Date: 11/21/22 Principal diagnosis: Fever/infected sacral pressure ulcer Patient is a 42-year-old male with a past medical history significant for rheumatoid arthritis hypertension osteoporosis CVA TIA and apparently the patient has been bedridden for a long time currently at the [facility] for rehabilitation patient [facility] of fever , with concern for infected sacral pressure ulcer, CT did not show any bony destruction however there was evidence of inflammatory changes around the coccyx suspicious for infected pressure ulcer on today's evaluation that is 11/21/2022, the patient continues to be afebrile, the patient is breathing comfortably on room air , the patient denies chest pain shortness of breath or cough, the patient denies nausea no vomiting no abdominal pain or diarrhea, patient left is swelling and discomfort has decreased in intensity, no new symptoms Objective - Vital Signs Vital signs: Vital Signs Temp 98.6 F 11/21/22 08:02 Pulse 87 11/21/22 08:02 Resp 16 11/21/22 08:18 BP 126/82 11/21/22 08:02 Pulse Ox 96 11/21/22 08:02 FiO2 Intake & Output 11/20/22 11/21/22 11/21/22 18:59 06:59 18:59 Output Total 0 Balance 0 Weight 72.575 kg Output: Stool 0 Other: Voiding Method Diaper Diaper Diaper Incontinent Incontinent Incontinent # Voids 5 5 - Exam GENERAL DESCRIPTION: Middle-aged male lying in bed in no distress RESPIRATORY SYSTEM: Unlabored breathing , decreased breath sounds at bases HEART: S1 S2 regular rate and rhythm , ABDOMEN: Soft , no tenderness EXTREMITIES: No edema feet - Labs CBC & Chem 7: 11/20/22 08:56 11/21/22 11:20 Labs: Abnormal Lab Results - Last 24 Hours (Table) 11/21/22 Range/Units 11:20 BUN <2 L (9-20) mg/dL Creatinine 0.36 L (0.66-1.25) mg/dL Microbiology - Last 24 Hours (Table) 11/15/22 15:48 Blood Culture - Preliminary Blood No Growth after 120 hours 11/18/22 15:52 Blood Culture - Preliminary Blood No Growth after 48 hours Assessment and Plan (1) Decubitus ulcer Current Visit: Yes Status: Acute Code(s): L89.90 - PRESSURE ULCER OF UNSPECIFIED SITE, UNSPECIFIED STAGE SNOMED Code(s): 7686048239 (2) Fever Current Visit: Yes Status: Acute Code(s): R50.9 - FEVER, UNSPECIFIED SNOMED Code(s): 558248224 Plan: 1patient presented to hospital with sepsis in this patient who did have a low- grade fever elevated white count tachycardia source is likely infected sacral pressure ulcer as the patient currently do not have any other obvious focus of infection he is breathing comfortably on room air chest x-ray not show any consolidation urine has been negative and no evidence of lower extremity cellulitis or joint swelling wound did have minimal slough tissue and minimal surrounding redness we will need to cover for both gram-positive as well as gram-negative pathogen 2- CT of the sacrum with no evidence of any abscess or osteomyelitis, however did shows evidence of inflammatory changes suspicious for infected wound Patient did have elevated inflammatory markers with a sed rate of 75 and a CRP of 11.20 4-local wound care with Medihoney followed by moist dressing change daily and keep the area of the pressure 5-patient with a positive blood culture with diptheroid species, is more likely contamination blood cultures has been repeated, which are negative so far 6patient will need a PICC line for outpatient IV antibiotic therapy continue with the Unasyn 4-6 weeks and a close outpatient follow-up along with weekly monitoring of CRP and a sed rate 7- Left sided conjunctivitis continue with moxifloxacin eye drops 3 days on discharge Time with Patient: Less than 30
[2022-11-21 15:35] VITALS: BP 144/99; PULSE 105; RESP 17; TEMP 98.7
[2022-11-21 16:31] LABS: Basophils # (A) 0.09 X 10*3/uL (0.00-0.10); Basophils % (A) 0.5 %; Eosinophils # (A) 0.16 X 10*3/uL (0.04-0.35); Eosinophils % (A) 0.8 %; HCT 35.9 % (39.6-50.0); HGB 10.4 g/dL (13.0-17.0); Immature Grans, Automated 0.6 %; Lymphocytes # (A) 3.83 X 10*3/uL (0.90-5.00); Lymphocytes % (A) 19.4 %; MCH 24.6 pg (27.0-32.0); MCV 85.1 fL (80.0-97.0); Mean Platelet Volume 10.4 fL (9.5-12.2); Monocytes # (A) 1.34 X 10*3/uL (0.20-1.00); Monocytes % (A) 6.8 %; NRBC Per 100 WBC 0 /100 WBCS (0.0-0.0); Neutrophils # (A) 14.22 X 10*3/uL (1.80-7.70); Neutrophils % (A) 71.9 %; Platelet Count 539 X 10*3/uL (140-440); RBC 4.22 X 10*6/uL (4.40-5.60); RDW 21.8 % (11.5-14.5); WBC 19.75 X 10*3/uL (4.50-10.00)
[2022-11-21] MEDS: SODIUM CHLORIDE 0.9% 1,000 ML IV SCH (16:58)
== END 2022-11-21 18:50 | DRG 871 ==
LOC: EC 15:06 → 4SSUR 18:47
PROVIDERS: ADMIT Hospitalist; ATTEND Hospitalist
PROC: 02HV33Z Insertion of Infusion Device into Superior Vena Cava, Percutaneous Approach (ICD-10-PCS; principal; 2022-11-21 11:30)
DX: A41.9 Sepsis, unspecified organism (principal); L89.153 Pressure ulcer of sacral region, stage 3; I69.351 Hemiplegia and hemiparesis following cerebral infarction affecting right dominant side; E03.9 Hypothyroidism, unspecified; R13.10 Dysphagia, unspecified; Z28.311 Partially vaccinated for COVID-19; Z28.21 Immunization not carried out because of patient refusal; M81.0 Age-related osteoporosis without current pathological fracture; Z74.01 Bed confinement status; Z20.822 Contact with and (suspected) exposure to COVID-19; M06.9 Rheumatoid arthritis, unspecified; I10 Essential (primary) hypertension; Z79.631 Long term (current) use of antimetabolite agent; Z79.82 Long term (current) use of aspirin; Z79.83 Long term (current) use of bisphosphonates; Z79.890 Hormone replacement therapy; Z79.891 Long term (current) use of opiate analgesic; Z79.899 Other long term (current) drug therapy; H10.9 Unspecified conjunctivitis; Z87.891 Personal history of nicotine dependence; Z79.52 Long term (current) use of systemic steroids
CPT/HCPCS: 36415; 36573; 71046; 72192; 80048; 80053; 80202; 81003; 82565; 83605; 83735; 84145; 85025; 85610; 85652; 86140; 87040; 87070; 87205; 87636; 93005; 93970; 96361; 96365; 96366; 96367; 99285

== ENCOUNTER → 2023-02-21 | Outpatient (CLI) | payer MEDICARE, OTHER ==
--- NOTE | 2023-02-21 11:51 | MR ---
EXAMINATION TYPE: MR brain wo con DATE OF EXAM: 02/21/2023 COMPARISON: Outside CT scan of the brain completed 10/19/2022 HISTORY: Stroke, neuro deficit, acute, persistent or progressing TECHNIQUE: T1-weighted sagittal, T2, FLAIR, and diffusion axial, and T2 coronal coronal views of the brain are submitted. FINDINGS: There couple foci of high signal on diffusion within the deep white matter adjacent to left lateral v entricle. Blooming artifact noted suggesting prior hemorrhagic infarction.. In addition there are areas of abnormal signal involving the right cervical spinal cord at the cervic al medullary junction. Anterior margin of the left medulla, left hay, and left cerebral peduncle wit hin the midbrain and left thalamus suggestive of previous ischemia and stroke. Within the posterior left parietal cortex on axial image 41 is an area of abnormal signal measuring a pproximately 7 mm which appears to demonstrate diffusion restriction and suspicious for a tiny area o f new ischemia. Punctate area of increased signal on the noncontrast T1 images could be related to ti ny petechial hemorrhage. A mild generalized degenerative change. There is nonspecific multiple focal areas of abnormal signal within white matter bilaterally compatible with remote microvascular ischemia.. No midline shift or m ass effect. Changes of chronic right mastoiditis are noted and there is a subcutaneous cyst adjacent to the right parotid gland measuring 1.2 cm most likely on the basis of a sebaceous cyst. Craniocervical junction maintained. Sella turcica has a normal appearance. Orbits are symmetric. Nasal septal deviation noted an there are changes of mild chronic sinusitis. IMPRESSION: 1. Areas of previous subacute to chronic ischemia are noted involving the deep white matter, left mid brain, left hay, left medulla, and along the right cerebral spinal cord at the cervical medullary ju nction. There are a couple punctate focal areas of diffusion restriction within the deep white matter of the left parietal lobe in the centrum semiovale suggestive of acute ischemia. Report called to alannha kim. 11:36 AM 02/21/2023. 2. Additionally within the posterior left temporal cortex there is a 7 mm area of abnormal signal on FLAIR and diffusion suspicious for a tiny area of acute ischemia. Area of high signal seen in the reg ion measuring 1 to 2 mm on the noncontrast T1 could represent a punctate petechial hemorrhage. 3. Degenerative and an remote white matter microvascular ischemia. Additionally, there is blooming ar tifact in the left deep white matter in the area of ischemia suggests prior hemorrhagic infarction.
== END | disposition home or self-care (01) ==
LOC: RADMRIMAIN 08:53
PROVIDERS: ATTEND Psychiatry & Neurology Neurology
DX: I63.9 Cerebral infarction, unspecified (principal); I69.351 Hemiplegia and hemiparesis following cerebral infarction affecting right dominant side; G93.40 Encephalopathy, unspecified; I67.82 Cerebral ischemia; R90.82 White matter disease, unspecified
CPT/HCPCS: 70551